=== PATIENT | male | born 1945 | race Caucasian/White ===

== ENCOUNTER → 2024-09-08 17:02 | Outpatient (CLI) | payer MEDICARE, OTHER, SELFPAY ==
[2024-09-08 17:35] LABS: Add Manual Diff / Slide Review NO; Basophils Absolute Auto 0 /uL (0-100); Basophils Percent Auto 0.7 % (0-2); Eosinophils Absolute Auto 100 /uL (0-450); Hematocrit 40.9 % (41-53); Lymphocytes Absolute Auto 1300 /uL (1100-4500); Lymphocytes Percent Auto 19.8 % (25-40); Mean Corpuscular HGB Conc 34.2 % (30-36); Mean Corpuscular Hemoglobin 32.3 PG (26-34); Mean Corpuscular Volume 94.5 fL (80-100); Monocytes Absolute Auto 700 /uL (0-900); Monocytes Percent Auto 10.6 % (3-14); Neutrophils Absolute Auto 4400 /uL (1500-7000); Neutrophils Percent Auto 66.9 % (50-75); Platelet Count 264 X10^3/uL (150-400); Red Blood Cell Count 4.33 X10^6/uL (4.5-5.9); Red Cell Distribution Width 12.9 % (11.6-14.8); White Blood Cell Count 6.6 X10^3/uL (4.5-11.0)
[2024-09-08 17:57] LABS: HEMOLYSIS < 15 (0-50); Iron 96 ug/dL (49-181)
[2024-09-08 18:09] LABS: Percent Iron Saturation 35 % (20-50); Total Iron Binding Capacity 278 ug/dL (261-462); Transferrin 222 mg/dL (206-381)
[2024-09-08 18:29] LABS: TSH w/ Reflex to FT4 1.94 uIU/mL (0.47-4.68)
[2024-09-08 18:34] LABS: Ferritin 127 ng/mL (18-464)
[2024-09-08 18:48] LABS: Vitamin B12 Reflex MMA if <400 585 pg/mL (239-931)
== END ==
LOC: LAB 17:04
PROVIDERS: PCP Family Medicine; Referring Provider Family Medicine; Visit Provider Family Medicine
DX: R53.83 Other fatigue (principal); R41.89 Other symptoms and signs involving cognitive functions and awareness
CPT/HCPCS: 36415; 82607; 82728; 83540; 83550; 84443; 85025

== ENCOUNTER 2024-10-21 17:00 | Outpatient (RCR) | payer MEDICARE, OTHER, SELFPAY ==
--- NOTE | 2024-09-20 15:15 | PT.OPPOC ---
Physical, Occupational & Speech Therapy At Current Diagnoses Dorsalgia, unspecified (09/20/24) Lateral epicondylitis, right elbow (09/20/24) Unspecified injury of right shoulder and upper arm, initial encounter (09/20/24) Unspecified injury of right shoulder and upper arm, subsequent encounter (09/20/24) Visit Care Team Role Provider Type Tonia Tate MD Attending Provider Physician Family Provider Primary Care Provider Referring Provider Specialty: Family Practice VENEER REDRIER Address: [address] [place] [address], [phone] Fax: Email: [email or web address] Plan Of Care PT-OP-B Current Condition Start: 09/20/24 16:05 Freq: Status: Active Protocol: Document 09/20/24 15:15 DCW (Rec: 09/21/24 13:00 DCW [id number]) Current Condition History of Current Condition Onset Date 4 month history Current Complaints right arm pain History of Current Condition Pt is a 78 year old male presenting with a four month history of right arm pain. 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 There' s a lot of tingling, but I'm used to it, I just avoid triggering activities. Notes that after moving here in April, he was unpacking boxes, lifted something out of a large box, and felt something pull in his right arm. Was fairly sore and limited the use of his arm, but then worsened after falling, reports he tripped, fell forward, and caught himself with his hands, which worsened the pain in his right arm. Overall feels that his activity has decreased, and his bottler is weaker in his right arm. Does note a history of lateral epicondylitis. PT-OP-T Assessment and Plan Start: 09/20/24 16:05 Freq: Status: Active Protocol: Document 09/20/24 15:15 DCW (Rec: 09/21/24 14:58 DCW [id number]) Physical Therapy Assessment Rehab Potential Rehabilitation Potential Good Evaluation Complexity Number of Personal Factors/Comorbidities 1-2 Number of Body Systems Impaired 3 Clinical Presentation at Evaluation Stable Impairments Impairments Pain,Soft Tissue Mobility, Strength Goals Three Impairment Tenderness to palpation of right common extensor tendon Websphere Consultant Goal (LTG) Pt to demonstrate improvement of tone and tenderness of right forearm to WNL in order to return to normal home activities. LTG Duration 11/20/24 Two Impairment Pt exhibits mild weakness with right bottler (80# R vs 90# L) Alf Goal (LTG) Pt to improve right bottler strength to >90# in order to improve ability to open jars LTG Duration 11/20/24 One Impairment Pt does not have an appropriate home exercise program Short Term Goal (STG) Pt to be independent and compliant with an appropriate HEP STG Duration 10/20/24 Assessment Summary Assessment Pt presents with signs and symptoms consistent with referring diagnosis. Pt exhibiting some mild increased pain along biceps, especially his long head tendon, as well as moderate tone and tenderness at right common extensor tendon. Pt does have a history of lateral epicondylitis, and appears to be rather symptomatic in that area. Overall, pt testing largely negative, good strength, no limitations to mobility. Other than tone and tenderness, fairly unremarkable. Pt appears to be making good improvement already, will likely benefit from focus on tone management, strengthening, stretching, and functional pain-free mobility. Physical Therapy Plan Frequency and Duration Frequency of Treatment 2x/Week Plan of Care Start Date 09/20/24 Plan of Care End Date 11/20/24 Therapeutic Interventions Therapeutic Interventions Home Exercise Program,Joint Mobilizations,Manual Therapy, Neuromuscular Re-education, Patient/Caregiver Education, Self-Care/Home Management,Soft Tissue Mobilization, Therapeutic Activities, Therapeutic Exercises Modalities Cold Pack/Ice Massage,Electric Stimulation,Hot Packs, Ultrasound Next Visit Focus/Plan Next Note Type Treatment Note Next Visit Plan STM, forearm strengthening, flexibility Plan of Care Dates Plan of Care Start Date 09/20/24 Plan of Care End Date 11/20/24 Electronically Signed by: Marcus Myers, PT 09/21/24 6100 If you are in agreement with this Plan of Care, please return a signed and dated copy. I have reviewed this Plan of Care and certify that the skilled therapy services above are required to meet the patient?s needs. Physician Signature Date Printed Name and Credentials Clinical Instructor Signature Printed Name and Credentials
--- NOTE | 2024-09-20 16:00 | PT.OPPOC ---
Physical, Occupational & Speech Therapy At [facility] Current Diagnoses Dorsalgia, unspecified (09/20/24) Lateral epicondylitis, right elbow (09/20/24) Unspecified injury of right shoulder and upper arm, initial encounter (09/20/24) Unspecified injury of right shoulder and upper arm, subsequent encounter (09/20/24) Visit Care Team Role Provider Type Tonia Tate MD Attending Provider Physician Family Provider Primary Care Provider Referring Provider Specialty: Family Practice WOODENWARE ASSEMBLER Address: [address] [place] [address], [phone] Fax: Email: [email or web address] Plan Of Care PT-OP-B Current Condition Start: 09/20/24 16:05 Freq: Status: Active Protocol: Document 09/20/24 15:15 DCW (Rec: 09/21/24 13:00 DCW [id number]) Current Condition History of Current Condition Onset Date 4 month history Current Complaints right arm pain History of Current Condition Pt is a 78 year old male presenting with a four month history of right arm pain. 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 There' s a lot of tingling, but I'm used to it, I just avoid triggering activities. Notes that after moving here in April, he was unpacking boxes, lifted something out of a large box, and felt something pull in his right arm. Was fairly sore and limited the use of his arm, but then worsened after falling, reports he tripped, fell forward, and caught himself with his hands, which worsened the pain in his right arm. 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 Does note a history of lateral epicondylitis. PT-OP-T Assessment and Plan Start: 09/20/24 16:05 Freq: Status: Active Protocol: Document 09/20/24 15:15 DCW (Rec: 09/21/24 14:58 DCW [id number]) Physical Therapy Assessment Rehab Potential Rehabilitation Potential Good Evaluation Complexity Number of Personal Factors/Comorbidities 1-2 Number of Body Systems Impaired 3 Clinical Presentation at Evaluation Stable Impairments Impairments Pain,Soft Tissue Mobility, Strength Goals Three Impairment Tenderness to palpation of right common extensor tendon Airplane First Officer Goal (LTG) Pt to demonstrate improvement of tone and tenderness of right forearm to WNL in order to return to normal home activities. LTG Duration 11/20/24 Two Impairment Pt exhibits mild weakness with right pulp machine operator (80# R vs 90# L) Jail Goal (LTG) Pt to improve right pulp machine operator strength to >90# in order to improve ability to open jars LTG Duration 11/20/24 One Impairment Pt does not have an appropriate home exercise program Short Term Goal (STG) Pt to be independent and compliant with an appropriate HEP STG Duration 10/20/24 Assessment Summary Assessment Pt presents with signs and symptoms consistent with referring diagnosis. Pt exhibiting some mild increased pain along biceps, especially his long head tendon, as well as moderate tone and tenderness at right common extensor tendon. Pt does have a history of lateral epicondylitis, and appears to be rather symptomatic in that area. Overall, pt testing largely negative, good strength, no limitations to mobility. Other than tone and tenderness, fairly unremarkable. Pt appears to be making good improvement already, will likely benefit from focus on tone management, strengthening, stretching, and functional pain-free mobility. Physical Therapy Plan Frequency and Duration Frequency of Treatment 2x/Week Plan of Care Start Date 09/20/24 Plan of Care End Date 11/20/24 Therapeutic Interventions Therapeutic Interventions Home Exercise Program,Joint Mobilizations,Manual Therapy, Neuromuscular Re-education, Patient/Caregiver Education, Self-Care/Home Management,Soft Tissue Mobilization, Therapeutic Activities, Therapeutic Exercises Modalities Cold Pack/Ice Massage,Electric Stimulation,Hot Packs, Ultrasound Next Visit Focus/Plan Next Note Type Treatment Note Next Visit Plan STM, forearm strengthening, flexibility Plan of Care Dates Plan of Care Start Date 09/20/24 Plan of Care End Date 11/20/24 Electronically Signed by: Marcus Myers, PT 09/21/24 1500 If you are in agreement with this Plan of Care, please return a signed and dated copy. I have reviewed this Plan of Care and certify that the skilled therapy services above are required to meet the patient?s needs. Physician Signature Date Printed Name and Credentials Clinical Instructor Signature Printed Name and Credentials
--- NOTE | 2024-09-20 16:00 | PT.OIE ---
Current Diagnoses Dorsalgia, unspecified (09/20/24) Lateral epicondylitis, right elbow (09/20/24) Unspecified injury of right shoulder and upper arm, initial encounter (09/20/24) Unspecified injury of right shoulder and upper arm, subsequent encounter (09/20/24) Past Medical History (Last Updated 09/08/24 @ 17:44 by Tonia Tate MD) Acute cognitive decline Atrial fib/flutter, transient Barretts esophagus Cervical disc disease Fatigue Forearm pain Hyperlipidemia Hypertension Renal mass, right Seborrheic keratosis Visit Care Team Role Provider Type Tonia Tate MD Attending Provider Physician Family Provider Primary Care Provider Referring Provider Specialty: Family Practice LIQUID COMPOUNDER Address: [address] [place] [address], [facility] Fax: Email: [email or web address] Physical Therapy Initial Evaluation PT-OP-A Visit Information Start: 09/20/24 16:05 Freq: Status: Active Protocol: Document 09/20/24 15:15 DCW (Rec: 09/20/24 16:13 DCW [id number]) Out-Patient Physical Therapy Visit Information Visit Information Visit Type Initial Evaluation Visit Start Time 15:15 Visit Stop Time 16:00 Visit Number 1 Number of SOCIAL SECURITY SPECIALIST Visits 0 Evaluation Information Evaluation Date 09/20/24 PT-OP-B Current Condition Start: 09/20/24 16:05 Freq: Status: Active Protocol: Document 09/20/24 15:15 DCW (Rec: 09/21/24 13:00 DCW [id number]) Current Condition History of Current Condition Onset Date 4 month history Current Complaints right arm pain History of Current Condition Pt is a 78 year old male presenting with a four month history of right arm pain. 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 There' s a lot of tingling, but I'm used to it, I just avoid triggering activities. Notes that after moving here in April, he was unpacking boxes, lifted something out of a large box, and felt something pull in his right arm. Was fairly sore and limited the use of his arm, but then worsened after falling, reports he tripped, fell forward, and caught himself with his hands, which worsened the pain in his right arm. 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 Does note a history of lateral epicondylitis. PT-OP-C Subjective Start: 09/20/24 16:05 Freq: Status: Active Protocol: Document 09/20/24 15:15 DCW (Rec: 09/20/24 16:13 DCW [id number]) OP-PT Subjective Patient Comments Patient Comments It felt a lot like when I tore my pec, but there wasn't any bruising this time. When I tore my pec, my entire arm was bruised. Patient Reported Progress Improving Patient Questionnaires Quick Dash- Upper Extremity Quick Dash UE Score 34.09% Quick Dash UE Impairment 20 to 39% Impaired (Score 20- 39) PT-OP-F Manual Assessment Start: 09/20/24 16:05 Freq: Status: Active Protocol: Document 09/20/24 15:15 DCW (Rec: 09/21/24 12:51 DCW [id number]) Manual Assessments Soft Tissue Assessment Soft Tissue Mobility Assessment Tenderness to palpation 3/4: Wincing and withdraw along right common extensor tendon, 1/4: Complaint of pain along right long head tendon Joint Mobility Assessment Joint Mobility Assessment Functional joint mobility WNL PT-OP-K Range of Motion Start: 09/20/24 16:05 Freq: Status: Active Protocol: Document 09/20/24 15:15 DCW (Rec: 09/21/24 12:51 DCW [id number]) Shoulder Goniometric Range of Motion Shoulder Left Active Shoulder ROM WFL Yes Testing Position Sitting Flexion 180 Abduction 180 External Rotation at 0 degrees Abduction 65 Right Active Shoulder ROM WFL Yes Testing Position Sitting Flexion 180 Abduction 180 External Rotation at 0 degrees Abduction 65 PT-OP-L Special Tests Start: 09/20/24 16:05 Freq: Status: Active Protocol: Document 09/20/24 15:15 DCW (Rec: 09/21/24 12:51 DCW [id number]) Special Tests Shoulder Special Tests Yergason's Biceps Test Results Negative Speed's Biceps Test Results Negative Passive ER Rotator Cuff Test Results Negative Lift-Off Rotator Cuff Test Results Negative Cooper Primo Impingement Test Results Negative Grind Labrum Test Results Negative Empty Can Test Results Negative Drop Arm Rotator Cuff Test Results Negative Clunk Test Test Results Negative Belly Press Test Results Negative Apprehension Test Test Results Negative Wrist/Hand Special Tests Lateral Epicondylitis Flexed Test Results Negative Lateral Epicondylitis Extended Test Results Negative PT-OP-M Strength Start: 09/20/24 16:05 Freq: Status: Active Protocol: Document 09/20/24 15:15 DCW (Rec: 09/21/24 12:51 DCW [id number]) Shoulder Strength Shoulder Manual Muscle Testing Right Flexion 5 Normal Abduction (C5) 5 Normal External Rotation 5 Normal Internal Rotation 5 Normal Left Flexion 5 Normal Abduction (C5) 5 Normal External Rotation 5 Normal Internal Rotation 5 Normal Elbow/Forearm Strength Elbow and Forearm Manual Muscle Testing Right Flexion (C6) 5 Normal Extension (C7) 5 Normal Pronation 5 Normal Supination 5 Normal Left Flexion (C6) 5 Normal Extension (C7) 5 Normal Pronation 5 Normal Supination 5 Normal Wrist Strength Wrist Manual Muscle Testing Right Flexion (C7) 5 Normal Extension (C6) 5 Normal Ulnar Deviation 5 Normal Radial Deviation 5 Normal Left Flexion (C7) 5 Normal Extension (C6) 5 Normal Ulnar Deviation 5 Normal Radial Deviation 5 Normal Hand Foundation Director/Pinch Strength Hand Dominance Hand Dominance Right Hand Strength Right Foundation Director (lbs) 80 Comments Three-trial average (80, 80, 80) Left Foundation Director (lbs) 90 Comments Three-trial average (100, 80, 90) PT-OP-Q Treatments Start: 09/20/24 16:05 Freq: Status: Active Protocol: Document 09/20/24 15:15 DCW (Rec: 09/20/24 16:13 DCW [id number]) Therapeutic Exercises Sitting Exercises Foundation Director Sitting Exercise Name Finger flexion/extension Side right Resistance Greeny Putty Wrist Flexion Sitting Exercise Name 4-way wrist flexion Side right Resistance Lv 3 Pronation Sitting Exercise Name Hammer Pronation/Supination Side right PT-OP-T Assessment and Plan Start: 09/20/24 16:05 Freq: Status: Active Protocol: Document 09/20/24 15:15 DCW (Rec: 09/21/24 14:58 DCW [id number]) Physical Therapy Assessment Rehab Potential Rehabilitation Potential Good Evaluation Complexity Number of Personal Factors/Comorbidities 1-2 Number of Body Systems Impaired 3 Clinical Presentation at Evaluation Stable Impairments Impairments Pain,Soft Tissue Mobility, Strength Goals Three Impairment Tenderness to palpation of right common extensor tendon Fci Goal (LTG) Pt to demonstrate improvement of tone and tenderness of right forearm to WNL in order to return to normal home activities. LTG Duration 11/20/24 Two Impairment Pt exhibits mild weakness with right biomedical repair technician (80# R vs 90# L) Cathode Builder Goal (LTG) Pt to improve right biomedical repair technician strength to >90# in order to improve ability to open jars LTG Duration 11/20/24 One Impairment Pt does not have an appropriate home exercise program Short Term Goal (STG) Pt to be independent and compliant with an appropriate HEP STG Duration 10/20/24 Assessment Summary Assessment Pt presents with signs and symptoms consistent with referring diagnosis. Pt exhibiting some mild increased pain along biceps, especially his long head tendon, as well as moderate tone and tenderness at right common extensor tendon. Pt does have a history of lateral epicondylitis, and appears to be rather symptomatic in that area. Overall, pt testing largely negative, good strength, no limitations to mobility. Other than tone and tenderness, fairly unremarkable. Pt appears to be making good improvement already, will likely benefit from focus on tone management, strengthening, stretching, and functional pain-free mobility. Physical Therapy Plan Frequency and Duration Frequency of Treatment 2x/Week Plan of Care Start Date 09/20/24 Plan of Care End Date 11/20/24 Therapeutic Interventions Therapeutic Interventions Home Exercise Program,Joint Mobilizations,Manual Therapy, Neuromuscular Re-education, Patient/Caregiver Education, Self-Care/Home Management,Soft Tissue Mobilization, Therapeutic Activities, Therapeutic Exercises Modalities Cold Pack/Ice Massage,Electric Stimulation,Hot Packs, Ultrasound Next Visit Focus/Plan Next Note Type Treatment Note Next Visit Plan STM, forearm strengthening, flexibility
--- NOTE | 2024-09-20 16:00 | PT.OIE ---
Current Diagnoses Dorsalgia, unspecified (09/20/24) Lateral epicondylitis, right elbow (09/20/24) Unspecified injury of right shoulder and upper arm, initial encounter (09/20/24) Unspecified injury of right shoulder and upper arm, subsequent encounter (09/20/24) Past Medical History (Last Updated 09/08/24 @ 17:44 by Tonia Tate MD) Acute cognitive decline Atrial fib/flutter, transient Barretts esophagus Cervical disc disease Fatigue Forearm pain Hyperlipidemia Hypertension Renal mass, right Seborrheic keratosis Visit Care Team Role Provider Type Tonia Tate MD Attending Provider Physician Family Provider Primary Care Provider Referring Provider Specialty: Family Practice [employer] Address: [address] [place] [address], [facility] Fax: Email: [email or web address] Physical Therapy Initial Evaluation PT-OP-A Visit Information Start: 09/20/24 16:05 Freq: Status: Active Protocol: Document 09/20/24 15:15 DCW (Rec: 09/20/24 16:13 DCW [id number]) Out-Patient Physical Therapy Visit Information Visit Information Visit Type Initial Evaluation Visit Start Time 15:15 Visit Stop Time 16:00 Visit Number 1 Number of PREPARATION ROOM WORKER Visits 0 Evaluation Information Evaluation Date 09/20/24 PT-OP-B Current Condition Start: 09/20/24 16:05 Freq: Status: Active Protocol: Document 09/20/24 15:15 DCW (Rec: 09/21/24 13:00 DCW [id number]) Current Condition History of Current Condition Onset Date 4 month history Current Complaints right arm pain History of Current Condition Pt is a 78 year old male presenting with a four month history of right arm pain. 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 There' s a lot of tingling, but I'm used to it, I just avoid triggering activities. Notes that after moving here in April, he was unpacking boxes, lifted something out of a large box, and felt something pull in his right arm. Was fairly sore and limited the use of his arm, but then worsened after falling, reports he tripped, fell forward, and caught himself with his hands, which worsened the pain in his right arm. Overall feels that his activity has decreased, and his sleeve maker is weaker in his right arm. Does note a history of lateral epicondylitis. PT-OP-C Subjective Start: 09/20/24 16:05 Freq: Status: Active Protocol: Document 09/20/24 15:15 DCW (Rec: 09/20/24 16:13 DCW [id number]) OP-PT Subjective Patient Comments Patient Comments It felt a lot like when I tore my pec, but there wasn't any bruising this time. When I tore my pec, my entire arm was bruised. Patient Reported Progress Improving Patient Questionnaires Quick Dash- Upper Extremity Quick Dash UE Score 34.09% Quick Dash UE Impairment 20 to 39% Impaired (Score 20- 39) PT-OP-F Manual Assessment Start: 09/20/24 16:05 Freq: Status: Active Protocol: Document 09/20/24 15:15 DCW (Rec: 09/21/24 12:51 DCW [id number]) Manual Assessments Soft Tissue Assessment Soft Tissue Mobility Assessment Tenderness to palpation 3/4: Wincing and withdraw along right common extensor tendon, 1/4: Complaint of pain along right long head tendon Joint Mobility Assessment Joint Mobility Assessment Functional joint mobility WNL PT-OP-K Range of Motion Start: 09/20/24 16:05 Freq: Status: Active Protocol: Document 09/20/24 15:15 DCW (Rec: 09/21/24 12:51 DCW [id number]) Shoulder Goniometric Range of Motion Shoulder Left Active Shoulder ROM WFL Yes Testing Position Sitting Flexion 180 Abduction 180 External Rotation at 0 degrees Abduction 65 Right Active Shoulder ROM WFL Yes Testing Position Sitting Flexion 180 Abduction 180 External Rotation at 0 degrees Abduction 65 PT-OP-L Special Tests Start: 09/20/24 16:05 Freq: Status: Active Protocol: Document 09/20/24 15:15 DCW (Rec: 09/21/24 12:51 DCW [id number]) Special Tests Shoulder Special Tests Yergason's Biceps Test Results Negative Speed's Biceps Test Results Negative Passive ER Rotator Cuff Test Results Negative Lift-Off Rotator Cuff Test Results Negative Cooper Primo Impingement Test Results Negative Grind Labrum Test Results Negative Empty Can Test Results Negative Drop Arm Rotator Cuff Test Results Negative Clunk Test Test Results Negative Belly Press Test Results Negative Apprehension Test Test Results Negative Wrist/Hand Special Tests Lateral Epicondylitis Flexed Test Results Negative Lateral Epicondylitis Extended Test Results Negative PT-OP-M Strength Start: 09/20/24 16:05 Freq: Status: Active Protocol: Document 09/20/24 15:15 DCW (Rec: 09/21/24 12:51 DCW [id number]) Shoulder Strength Shoulder Manual Muscle Testing Right Flexion 5 Normal Abduction (C5) 5 Normal External Rotation 5 Normal Internal Rotation 5 Normal Left Flexion 5 Normal Abduction (C5) 5 Normal External Rotation 5 Normal Internal Rotation 5 Normal Elbow/Forearm Strength Elbow and Forearm Manual Muscle Testing Right Flexion (C6) 5 Normal Extension (C7) 5 Normal Pronation 5 Normal Supination 5 Normal Left Flexion (C6) 5 Normal Extension (C7) 5 Normal Pronation 5 Normal Supination 5 Normal Wrist Strength Wrist Manual Muscle Testing Right Flexion (C7) 5 Normal Extension (C6) 5 Normal Ulnar Deviation 5 Normal Radial Deviation 5 Normal Left Flexion (C7) 5 Normal Extension (C6) 5 Normal Ulnar Deviation 5 Normal Radial Deviation 5 Normal Hand Casing Trimmer/Pinch Strength Hand Dominance Hand Dominance Right Hand Strength Right Casing Trimmer (lbs) 80 Comments Three-trial average (80, 80, 80) Left Casing Trimmer (lbs) 90 Comments Three-trial average (100, 80, 90) PT-OP-Q Treatments Start: 09/20/24 16:05 Freq: Status: Active Protocol: Document 09/20/24 15:15 DCW (Rec: 09/20/24 16:13 DCW [id number]) Therapeutic Exercises Sitting Exercises Casing Trimmer Sitting Exercise Name Finger flexion/extension Side right Resistance Greeny Putty Wrist Flexion Sitting Exercise Name 4-way wrist flexion Side right Resistance Lv 3 Pronation Sitting Exercise Name Hammer Pronation/Supination Side right PT-OP-T Assessment and Plan Start: 09/20/24 16:05 Freq: Status: Active Protocol: Document 09/20/24 15:15 DCW (Rec: 09/21/24 14:58 DCW [id number]) Physical Therapy Assessment Rehab Potential Rehabilitation Potential Good Evaluation Complexity Number of Personal Factors/Comorbidities 1-2 Number of Body Systems Impaired 3 Clinical Presentation at Evaluation Stable Impairments Impairments Pain,Soft Tissue Mobility, Strength Goals Three Impairment Tenderness to palpation of right common extensor tendon Mcfp Goal (LTG) Pt to demonstrate improvement of tone and tenderness of right forearm to WNL in order to return to normal home activities. LTG Duration 11/20/24 Two Impairment Pt exhibits mild weakness with right sleeve maker (80# R vs 90# L) Preschool Assistant Goal (LTG) Pt to improve right sleeve maker strength to >90# in order to improve ability to open jars LTG Duration 11/20/24 One Impairment Pt does not have an appropriate home exercise program Short Term Goal (STG) Pt to be independent and compliant with an appropriate HEP STG Duration 10/20/24 Assessment Summary Assessment Pt presents with signs and symptoms consistent with referring diagnosis. Pt exhibiting some mild increased pain along biceps, especially his long head tendon, as well as moderate tone and tenderness at right common extensor tendon. Pt does have a history of lateral epicondylitis, and appears to be rather symptomatic in that area. Overall, pt testing largely negative, good strength, no limitations to mobility. Other than tone and tenderness, fairly unremarkable. Pt appears to be making good improvement already, will likely benefit from focus on tone management, strengthening, stretching, and functional pain-free mobility. Physical Therapy Plan Frequency and Duration Frequency of Treatment 2x/Week Plan of Care Start Date 09/20/24 Plan of Care End Date 11/20/24 Therapeutic Interventions Therapeutic Interventions Home Exercise Program,Joint Mobilizations,Manual Therapy, Neuromuscular Re-education, Patient/Caregiver Education, Self-Care/Home Management,Soft Tissue Mobilization, Therapeutic Activities, Therapeutic Exercises Modalities Cold Pack/Ice Massage,Electric Stimulation,Hot Packs, Ultrasound Next Visit Focus/Plan Next Note Type Treatment Note Next Visit Plan STM, forearm strengthening, flexibility
--- NOTE | 2024-09-23 15:59 | PT.OTN ---
Current Diagnoses Dorsalgia, unspecified (09/23/24) Lateral epicondylitis, right elbow (09/23/24) Unspecified injury of right shoulder and upper arm, initial encounter (09/23/24) Unspecified injury of right shoulder and upper arm, subsequent encounter (09/23/24) Physical Therapy Treatment Note PT-OP-A Visit Information Start: 09/20/24 16:05 Freq: Status: Active Protocol: Document 09/23/24 15:15 DCW (Rec: 09/23/24 15:59 DCW [id number]) Out-Patient Physical Therapy Visit Information Visit Information Visit Type Treatment Note Visit Start Time 15:15 Visit Stop Time 16:00 Visit Number 2 Number of COIL CONNECTOR Visits 0 Evaluation Information Evaluation Date 09/20/24 PT-OP-B Current Condition Start: 09/20/24 16:05 Freq: Status: Active Protocol: Document 09/20/24 15:15 DCW (Rec: 09/21/24 13:00 DCW [id number]) Current Condition History of Current Condition Onset Date 4 month history Current Complaints right arm pain History of Current Condition Pt is a 78 year old male presenting with a four month history of right arm pain. 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 There' s a lot of tingling, but I'm used to it, I just avoid triggering activities. Notes that after moving here in April, he was unpacking boxes, lifted something out of a large box, and felt something pull in his right arm. Was fairly sore and limited the use of his arm, but then worsened after falling, reports he tripped, fell forward, and caught himself with his hands, which worsened the pain in his right arm. 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 Does note a history of lateral epicondylitis. PT-OP-C Subjective Start: 09/20/24 16:05 Freq: Status: Active Protocol: Document 09/23/24 15:15 DCW (Rec: 09/23/24 15:59 DCW [id number]) OP-PT Subjective Patient Comments Patient Comments I think it might be a little better, but it also seems a little soon for that, so it might be my imagination. PT-OP-F Manual Assessment Start: 09/20/24 16:05 Freq: Status: Active Protocol: Document 09/20/24 15:15 DCW (Rec: 09/21/24 12:51 DCW [id number]) Manual Assessments Soft Tissue Assessment Soft Tissue Mobility Assessment Tenderness to palpation 3/4: Wincing and withdraw along right common extensor tendon, 1/4: Complaint of pain along right long head tendon Joint Mobility Assessment Joint Mobility Assessment Functional joint mobility WNL PT-OP-K Range of Motion Start: 09/20/24 16:05 Freq: Status: Active Protocol: Document 09/20/24 15:15 DCW (Rec: 09/21/24 12:51 DCW [id number]) Shoulder Goniometric Range of Motion Shoulder Left Active Shoulder ROM WFL Yes Testing Position Sitting Flexion 180 Abduction 180 External Rotation at 0 degrees Abduction 65 Right Active Shoulder ROM WFL Yes Testing Position Sitting Flexion 180 Abduction 180 External Rotation at 0 degrees Abduction 65 PT-OP-L Special Tests Start: 09/20/24 16:05 Freq: Status: Active Protocol: Document 09/20/24 15:15 DCW (Rec: 09/21/24 12:51 DCW [id number]) Special Tests Shoulder Special Tests Yergason's Biceps Test Results Negative Speed's Biceps Test Results Negative Passive ER Rotator Cuff Test Results Negative Lift-Off Rotator Cuff Test Results Negative Cooper Primo Impingement Test Results Negative Grind Labrum Test Results Negative Empty Can Test Results Negative Drop Arm Rotator Cuff Test Results Negative Clunk Test Test Results Negative Belly Press Test Results Negative Apprehension Test Test Results Negative Wrist/Hand Special Tests Lateral Epicondylitis Flexed Test Results Negative Lateral Epicondylitis Extended Test Results Negative PT-OP-M Strength Start: 09/20/24 16:05 Freq: Status: Active Protocol: Document 09/20/24 15:15 DCW (Rec: 09/21/24 12:51 DCW [id number]) Shoulder Strength Shoulder Manual Muscle Testing Right Flexion 5 Normal Abduction (C5) 5 Normal External Rotation 5 Normal Internal Rotation 5 Normal Left Flexion 5 Normal Abduction (C5) 5 Normal External Rotation 5 Normal Internal Rotation 5 Normal Elbow/Forearm Strength Elbow and Forearm Manual Muscle Testing Right Flexion (C6) 5 Normal Extension (C7) 5 Normal Pronation 5 Normal Supination 5 Normal Left Flexion (C6) 5 Normal Extension (C7) 5 Normal Pronation 5 Normal Supination 5 Normal Wrist Strength Wrist Manual Muscle Testing Right Flexion (C7) 5 Normal Extension (C6) 5 Normal Ulnar Deviation 5 Normal Radial Deviation 5 Normal Left Flexion (C7) 5 Normal Extension (C6) 5 Normal Ulnar Deviation 5 Normal Radial Deviation 5 Normal Hand Picking Supervisor/Pinch Strength Hand Dominance Hand Dominance Right Hand Strength Right Picking Supervisor (lbs) 80 Comments Three-trial average (80, 80, 80) Left Picking Supervisor (lbs) 90 Comments Three-trial average (100, 80, 90) PT-OP-Q Treatments Start: 09/20/24 16:05 Freq: Status: Active Protocol: Document 09/23/24 15:15 DCW (Rec: 09/23/24 15:59 DCW [id number]) Therapeutic Exercises Sitting Exercises Ball Catch Sitting Exercise Name Palm-down self-throw ball catch Side right Resistance Yellow 2.2# -> Red 3.3# ball Finger Extension Sitting Exercise Name Finger extension Side right Resistance Morrow finger exhibit cleaner Flexbar Sitting Exercise Name Flexbar - Pro/Sup, Twist, Circles Side bilateral Resistance Red Wrist Stretch Sitting Exercise Name Flexion - stretch common extensors Side right Reps/Minutes 30 hold Manual Therapy Treatment Consent Patient gave verbal consent for manual Yes treatment Soft Tissue Mobilization Forearm Body Location R common extensor tendon Mobilization Type Cross-Friction Intensity/Depth Moderate Body Position Sitting Taping 1 Body Location R Lateral epicondyle Type of Tape Kinesio Tape Comments x over lateral epicondyle PT-OP-T Assessment and Plan Start: 09/20/24 16:05 Freq: Status: Active Protocol: Document 09/23/24 15:15 DCW (Rec: 09/23/24 15:59 DCW [id number]) Physical Therapy Assessment Impairments Impairments Pain,Soft Tissue Mobility, Strength Goals Three Impairment Tenderness to palpation of right common extensor tendon Custodial Goal (LTG) Pt to demonstrate improvement of tone and tenderness of right forearm to WNL in order to return to normal home activities. LTG Duration 11/20/24 Two Impairment Pt exhibits mild weakness with right women's basketball coach (80# R vs 90# L) Custodial Goal (LTG) Pt to improve right women's basketball coach strength to >90# in order to improve ability to open jars LTG Duration 11/20/24 One Impairment Pt does not have an appropriate home exercise program Short Term Goal (STG) Pt to be independent and compliant with an appropriate HEP STG Duration 10/20/24 Assessment Summary Assessment Pt tolerated treatment very well today, felt significantly less pain by end of session. Trial of K-tape across lateral epicondyle, pt able to fully participate in TherEx with no complaints, although did note some fatigue in forearm. Continue to work on decreased tenderness, soft tissue mobility, and strengthening. Physical Therapy Plan Frequency and Duration Frequency of Treatment 2x/Week Plan of Care Start Date 09/20/24 Plan of Care End Date 11/20/24 Therapeutic Interventions Therapeutic Interventions Home Exercise Program,Joint Mobilizations,Manual Therapy, Neuromuscular Re-education, Patient/Caregiver Education, Self-Care/Home Management,Soft Tissue Mobilization, Therapeutic Activities, Therapeutic Exercises Modalities Cold Pack/Ice Massage,Electric Stimulation,Hot Packs, Ultrasound Next Visit Focus/Plan Next Note Type Treatment Note Next Visit Plan STM, forearm strengthening, flexibility
--- NOTE | 2024-09-29 14:35 | PT.OTN ---
Current Diagnoses Dorsalgia, unspecified (09/29/24) Lateral epicondylitis, right elbow (09/29/24) Unspecified injury of right shoulder and upper arm, initial encounter (09/29/24) Unspecified injury of right shoulder and upper arm, subsequent encounter (09/29/24) Physical Therapy Treatment Note PT-OP-A Visit Information Start: 09/20/24 16:05 Freq: Status: Active Protocol: Document 09/29/24 13:52 SP (Rec: 09/29/24 14:34 SP Laptop) Out-Patient Physical Therapy Visit Information Visit Information Visit Type Treatment Note Visit Note MARICHUY Jorgensen provided manual and instruction of ther ex to pt with his permission while under direct instruction of TYLER Mckinney. Visit Start Time 13:52 Visit Stop Time 14:35 Visit Number 3 Number of GIMP BUTTONHOLE MACHINE OPERATOR Visits 1 Evaluation Information Evaluation Date 09/20/24 PT-OP-B Current Condition Start: 09/20/24 16:05 Freq: Status: Active Protocol: Document 09/20/24 15:15 DCW (Rec: 09/21/24 13:00 DCW [id number]) Current Condition History of Current Condition Onset Date 4 month history Current Complaints right arm pain History of Current Condition Pt is a 78 year old male presenting with a four month history of right arm pain. 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 There' s a lot of tingling, but I'm used to it, I just avoid triggering activities. Notes that after moving here in April, he was unpacking boxes, lifted something out of a large box, and felt something pull in his right arm. Was fairly sore and limited the use of his arm, but then worsened after falling, reports he tripped, fell forward, and caught himself with his hands, which worsened the pain in his right arm. 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 Does note a history of lateral epicondylitis. PT-OP-C Subjective Start: 09/20/24 16:05 Freq: Status: Active Protocol: Document 09/29/24 13:52 SP (Rec: 09/29/24 14:34 SP Laptop) OP-PT Subjective Patient Comments Patient Comments Pt reports sore today due to on hands/knees staining his trellis. [place] good after last tx, pleased with gains with ROM and strength. Does have tingling down R>L into hand. He reports has some bladder urgency at times and limits drinking to support trips to bathroom. Found Ktaping was helpful, just removed before tx. PT-OP-F Manual Assessment Start: 09/20/24 16:05 Freq: Status: Active Protocol: Document 09/20/24 15:15 DCW (Rec: 09/21/24 12:51 DCW [id number]) Manual Assessments Soft Tissue Assessment Soft Tissue Mobility Assessment Tenderness to palpation 3/4: Wincing and withdraw along right common extensor tendon, 1/4: Complaint of pain along right long head tendon Joint Mobility Assessment Joint Mobility Assessment Functional joint mobility WNL PT-OP-K Range of Motion Start: 09/20/24 16:05 Freq: Status: Active Protocol: Document 09/20/24 15:15 DCW (Rec: 09/21/24 12:51 DCW [id number]) Shoulder Goniometric Range of Motion Shoulder Left Active Shoulder ROM WFL Yes Testing Position Sitting Flexion 180 Abduction 180 External Rotation at 0 degrees Abduction 65 Right Active Shoulder ROM WFL Yes Testing Position Sitting Flexion 180 Abduction 180 External Rotation at 0 degrees Abduction 65 PT-OP-L Special Tests Start: 09/20/24 16:05 Freq: Status: Active Protocol: Document 09/20/24 15:15 DCW (Rec: 09/21/24 12:51 DCW [id number]) Special Tests Shoulder Special Tests Yergason's Biceps Test Results Negative Speed's Biceps Test Results Negative Passive ER Rotator Cuff Test Results Negative Lift-Off Rotator Cuff Test Results Negative Cooper Primo Impingement Test Results Negative Grind Labrum Test Results Negative Empty Can Test Results Negative Drop Arm Rotator Cuff Test Results Negative Clunk Test Test Results Negative Belly Press Test Results Negative Apprehension Test Test Results Negative Wrist/Hand Special Tests Lateral Epicondylitis Flexed Test Results Negative Lateral Epicondylitis Extended Test Results Negative PT-OP-M Strength Start: 09/20/24 16:05 Freq: Status: Active Protocol: Document 09/20/24 15:15 DCW (Rec: 09/21/24 12:51 DCW [id number]) Shoulder Strength Shoulder Manual Muscle Testing Right Flexion 5 Normal Abduction (C5) 5 Normal External Rotation 5 Normal Internal Rotation 5 Normal Left Flexion 5 Normal Abduction (C5) 5 Normal External Rotation 5 Normal Internal Rotation 5 Normal Elbow/Forearm Strength Elbow and Forearm Manual Muscle Testing Right Flexion (C6) 5 Normal Extension (C7) 5 Normal Pronation 5 Normal Supination 5 Normal Left Flexion (C6) 5 Normal Extension (C7) 5 Normal Pronation 5 Normal Supination 5 Normal Wrist Strength Wrist Manual Muscle Testing Right Flexion (C7) 5 Normal Extension (C6) 5 Normal Ulnar Deviation 5 Normal Radial Deviation 5 Normal Left Flexion (C7) 5 Normal Extension (C6) 5 Normal Ulnar Deviation 5 Normal Radial Deviation 5 Normal Hand Manager Spring/Pinch Strength Hand Dominance Hand Dominance Right Hand Strength Right Manager Spring (lbs) 80 Comments Three-trial average (80, 80, 80) Left Manager Spring (lbs) 90 Comments Three-trial average (100, 80, 90) PT-OP-Q Treatments Start: 09/20/24 16:05 Freq: Status: Active Protocol: Document 09/29/24 13:52 SP (Rec: 09/29/24 14:34 SP Laptop) Therapeutic Exercises Sitting Exercises Wrist Flexion Sitting Exercise Name 4-way wrist extension, flexion , ulnar and radial deviation. Side right Resistance Lv 3 anchored under foot Reps/Minutes 2x10 Comments forearm maintained on thigh, cues for tb positioning. Pronation Sitting Exercise Name Hammer> TB #3 Pronation/ Supination Side right Reps/Minutes 2x10 Comments cuese keep forearm on thigh, vc's for tb positioning Manual Therapy Treatment Consent Patient gave verbal consent for manual Yes treatment Soft Tissue Mobilization R shld Body Location R pec, bicep Mobilization Type Rolling,Sustained Pressure, Other Body Position supine pillow supported Comments gentle STMs and MWM humeral IR /ER, elbow flex/ext Neck Body Location SOR, B UT, SCM, LS Mobilization Type Rolling,Sustained Pressure, Other Intensity/Depth Moderate Body Position Hooklying Comments slightly tender Forearm Body Location R common extensor tendon Mobilization Type Cross-Friction,Sustained Pressure,Other Intensity/Depth Moderate Body Position Hooklying Comments Gentle STM, MWM forearm pronation, supination, extension and flexion. Joint Mobilizations R elbow Joint inferior ulnar glide Grade II Comments with strap- good feedback response Self-Care/Home Management Treatment Education Other Education GIMP BUTTONHOLE MACHINE OPERATOR educate pt in Urgency technique and [place]egal long holds and quick contractions to support bladder extending frequency use of bathroom, verbalized understanding. [place] to give HO, will provide next tx. Continued education for use pillows for support supine under RUE for support decrease tingling symtoms into hand. PT-OP-T Assessment and Plan Start: 09/20/24 16:05 Freq: Status: Active Protocol: Document 09/29/24 13:52 SP (Rec: 09/29/24 14:34 SP Laptop) Physical Therapy Assessment Goals Three Impairment Tenderness to palpation of right common extensor tendon Loss Control Technician Goal (LTG) Pt to demonstrate improvement of tone and tenderness of right forearm to WNL in order to return to normal home activities. LTG Duration 11/20/24 Two Impairment Pt exhibits mild weakness with right wind turbine engineer (80# R vs 90# L) Loss Control Technician Goal (LTG) Pt to improve right wind turbine engineer strength to >90# in order to improve ability to open jars LTG Duration 11/20/24 One Impairment Pt does not have an appropriate home exercise program Short Term Goal (STG) Pt to be independent and compliant with an appropriate HEP STG Duration 10/20/24 Assessment Summary Assessment Pt responded well to manual therapy, more in neck and forearm/elbow. Educated pt in use of pillows for joint protection and decreased neural tension while sleeping. Provided cues for proper set up and form while performing HEP. Pt provided feedback that it allowed for more effort with TB versus hammer. Physical Therapy Plan Frequency and Duration Frequency of Treatment 2x/Week Plan of Care Start Date 09/20/24 Plan of Care End Date 11/20/24 Therapeutic Interventions Therapeutic Interventions Home Exercise Program,Joint Mobilizations,Manual Therapy, Neuromuscular Re-education, Patient/Caregiver Education, Self-Care/Home Management,Soft Tissue Mobilization, Therapeutic Activities, Therapeutic Exercises Modalities Cold Pack/Ice Massage,Electric Stimulation,Hot Packs, Ultrasound Next Visit Focus/Plan Next Note Type Treatment Note Next Visit Plan future wall posture, recheck set up for HEP for proper form . POC: STM, forearm strengthening, flexibility
--- NOTE | 2024-10-01 11:25 | PT.OTN ---
Current Diagnoses Dorsalgia, unspecified (10/01/24) Lateral epicondylitis, right elbow (10/01/24) Unspecified injury of right shoulder and upper arm, initial encounter (10/01/24) Unspecified injury of right shoulder and upper arm, subsequent encounter (10/01/24) Physical Therapy Treatment Note PT-OP-A Visit Information Start: 09/20/24 16:05 Freq: Status: Active Protocol: Document 10/01/24 10:45 SP (Rec: 10/01/24 12:55 SP Laptop) Out-Patient Physical Therapy Visit Information Visit Information Visit Type Treatment Note Visit Note SPTA Joslyn observed tx with BREAKDOWN PERSON Faye providing tx, with pt permission. Visit Start Time 10:45 Visit Stop Time 11:25 Visit Number 4 Number of BREAKDOWN PERSON Visits 2 Evaluation Information Evaluation Date 09/20/24 PT-OP-B Current Condition Start: 09/20/24 16:05 Freq: Status: Active Protocol: Document 09/20/24 15:15 DCW (Rec: 09/21/24 13:00 DCW [id number]) Current Condition History of Current Condition Onset Date 4 month history Current Complaints right arm pain History of Current Condition Pt is a 78 year old male presenting with a four month history of right arm pain. 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 There' s a lot of tingling, but I'm used to it, I just avoid triggering activities. Notes that after moving here in April, he was unpacking boxes, lifted something out of a large box, and felt something pull in his right arm. Was fairly sore and limited the use of his arm, but then worsened after falling, reports he tripped, fell forward, and caught himself with his hands, which worsened the pain in his right arm. 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 Does note a history of lateral epicondylitis. PT-OP-C Subjective Start: 09/20/24 16:05 Freq: Status: Active Protocol: Document 10/01/24 10:45 SP (Rec: 10/01/24 12:55 SP Laptop) OP-PT Subjective Patient Comments Patient Comments Pt reported doing well with HEP, feels more effort strengthening with TB vs hammer now. 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 He still has twinges in wrist and CET RUE with opening jars like opening cat food and lifting heavy casserole plate into drying rack and up to microwave. Feels ok to use plyers, screwdriver ok. Pt requested retape R elbow today for suppport helped. Doesn't always wear elbow strap. PT-OP-F Manual Assessment Start: 09/20/24 16:05 Freq: Status: Active Protocol: Document 09/20/24 15:15 DCW (Rec: 09/21/24 12:51 DCW [id number]) Manual Assessments Soft Tissue Assessment Soft Tissue Mobility Assessment Tenderness to palpation 3/4: Wincing and withdraw along right common extensor tendon, 1/4: Complaint of pain along right long head tendon Joint Mobility Assessment Joint Mobility Assessment Functional joint mobility WNL PT-OP-K Range of Motion Start: 09/20/24 16:05 Freq: Status: Active Protocol: Document 09/20/24 15:15 DCW (Rec: 09/21/24 12:51 DCW [id number]) Shoulder Goniometric Range of Motion Shoulder Left Active Shoulder ROM WFL Yes Testing Position Sitting Flexion 180 Abduction 180 External Rotation at 0 degrees Abduction 65 Right Active Shoulder ROM WFL Yes Testing Position Sitting Flexion 180 Abduction 180 External Rotation at 0 degrees Abduction 65 PT-OP-L Special Tests Start: 09/20/24 16:05 Freq: Status: Active Protocol: Document 09/20/24 15:15 DCW (Rec: 09/21/24 12:51 DC [id number]) Special Tests Shoulder Special Tests Yergason's Biceps Test Results Negative Speed's Biceps Test Results Negative Passive ER Rotator Cuff Test Results Negative Lift-Off Rotator Cuff Test Results Negative Cooper Primo Impingement Test Results Negative Grind Labrum Test Results Negative Empty Can Test Results Negative Drop Arm Rotator Cuff Test Results Negative Clunk Test Test Results Negative Belly Press Test Results Negative Apprehension Test Test Results Negative Wrist/Hand Special Tests Lateral Epicondylitis Flexed Test Results Negative Lateral Epicondylitis Extended Test Results Negative PT-OP-M Strength Start: 09/20/24 16:05 Freq: Status: Active Protocol: Document 09/20/24 15:15 DCW (Rec: 09/21/24 12:51 DCW [id number]) Shoulder Strength Shoulder Manual Muscle Testing Right Flexion 5 Normal Abduction (C5) 5 Normal External Rotation 5 Normal Internal Rotation 5 Normal Left Flexion 5 Normal Abduction (C5) 5 Normal External Rotation 5 Normal Internal Rotation 5 Normal Elbow/Forearm Strength Elbow and Forearm Manual Muscle Testing Right Flexion (C6) 5 Normal Extension (C7) 5 Normal Pronation 5 Normal Supination 5 Normal Left Flexion (C6) 5 Normal Extension (C7) 5 Normal Pronation 5 Normal Supination 5 Normal Wrist Strength Wrist Manual Muscle Testing Right Flexion (C7) 5 Normal Extension (C6) 5 Normal Ulnar Deviation 5 Normal Radial Deviation 5 Normal Left Flexion (C7) 5 Normal Extension (C6) 5 Normal Ulnar Deviation 5 Normal Radial Deviation 5 Normal Hand Classifier Operator/Pinch Strength Hand Dominance Hand Dominance Right Hand Strength Right Classifier Operator (lbs) 80 Comments Three-trial average (80, 80, 80) Left Classifier Operator (lbs) 90 Comments Three-trial average (100, 80, 90) PT-OP-Q Treatments Start: 09/20/24 16:05 Freq: Status: Active Protocol: Document 10/01/24 10:45 SP (Rec: 10/01/24 12:55 SP Laptop) Therapeutic Exercises Sitting Exercises Wrist Flexion Sitting Exercise Name 4-way wrist extension, flexion , ulnar and radial deviation. Side right Resistance Lv 3 anchored under foot Reps/Minutes 3x10 (BID) Comments forearm maintained on thigh, occ cues for tb positioning. Pronation Sitting Exercise Name Pronation/Supination Side right Resistance TB #3 iroqu[place] green, anchored under foot, inspection engineer jar top and TB #3 UD/RD Reps/Minutes 30 reps Comments Improved forearm on thigh, occ cue eccentric return Therapeutic Activity Therapeutic Activity UD/RD resisted activities Name next tx Comments strengthen support open hard can cat food Lift item into microwave Name Verbal instruction- review next tx Manual Therapy Treatment Consent Patient gave verbal consent for manual Yes treatment Soft Tissue Mobilization Forearm Body Location R common extensor tendon Mobilization Type Cross-Friction,Sustained Pressure,Other Intensity/Depth Moderate Body Position Hooklying Comments Gentle STM, MWM AROM forearm pronation, supination, extension and flexion. Taping 1 Body Location R Lateral epicondyle Treatment Focus decompression and MF support to pain reduction Type of Tape Kinesio Tape Comments x over lateral epicondyle- good response Self-Care/Home Management Treatment Education Patient Education Body Mechanics,Joint Protection,Pain Management, Safety Other Education Recommendation using RUE stationary in quadruped to give relief from painting tasks right now and painting with LUE, verbalized understanding. Instruction on proper donning/positioning of elbow strap distal CET for support during activities that could cause irritation and be mindful to give breaks for recovery. PT-OP-T Assessment and Plan Start: 09/20/24 16:05 Freq: Status: Active Protocol: Document 10/01/24 10:45 SP (Rec: 10/01/24 12:55 SP Laptop) Physical Therapy Assessment Goals Three Impairment Tenderness to palpation of right common extensor tendon Mcc Goal (LTG) Pt to demonstrate improvement of tone and tenderness of right forearm to WNL in order to return to normal home activities. LTG Duration 11/20/24 Two Impairment Pt exhibits mild weakness with right inspection engineer (80# R vs 90# L) Mcc Goal (LTG) Pt to improve right inspection engineer strength to >90# in order to improve ability to open jars LTG Duration 11/20/24 One Impairment Pt does not have an appropriate home exercise program Short Term Goal (STG) Pt to be independent and compliant with an appropriate HEP STG Duration 10/20/24 Assessment Summary Assessment Pt responded well to manual, continued ed for self STMs and MWM if beneficial. Education on using RLE for support while LUE perform painting with tasks home right now. Next tx discuss use of CP for pain control/reduction/recovery. Physical Therapy Plan Frequency and Duration Frequency of Treatment 2x/Week Plan of Care Start Date 09/20/24 Plan of Care End Date 11/20/24 Therapeutic Interventions Therapeutic Interventions Home Exercise Program,Joint Mobilizations,Manual Therapy, Neuromuscular Re-education, Patient/Caregiver Education, Self-Care/Home Management,Soft Tissue Mobilization, Therapeutic Activities, Therapeutic Exercises Modalities Cold Pack/Ice Massage,Electric Stimulation,Hot Packs, Ultrasound Next Visit Focus/Plan Next Note Type Treatment Note Next Visit Plan Add CP for pain control, RD/UE with wt ball at head level next tx. Recheck Ktaping and if updating modification suggested in quadruped painting LUE performance, RUE WB stationary. POC: STM, forearm strengthening, flexibility
--- NOTE | 2024-10-04 16:03 | PT.OTN ---
Current Diagnoses Dorsalgia, unspecified (10/04/24) Lateral epicondylitis, right elbow (10/04/24) Unspecified injury of right shoulder and upper arm, initial encounter (10/04/24) Unspecified injury of right shoulder and upper arm, subsequent encounter (10/04/24) Physical Therapy Treatment Note PT-OP-A Visit Information Start: 09/20/24 16:05 Freq: Status: Active Protocol: Document 10/04/24 15:15 DCW (Rec: 10/04/24 16:03 DCW [id number]) Out-Patient Physical Therapy Visit Information Visit Information Visit Type Treatment Note Visit Start Time 15:15 Visit Stop Time 16:00 Visit Number 5 Number of AIRCRAFT LOG CLERK Visits 0 Evaluation Information Evaluation Date 09/20/24 PT-OP-B Current Condition Start: 09/20/24 16:05 Freq: Status: Active Protocol: Document 09/20/24 15:15 DCW (Rec: 09/21/24 13:00 DCW [id number]) Current Condition History of Current Condition Onset Date 4 month history Current Complaints right arm pain History of Current Condition Pt is a 78 year old male presenting with a four month history of right arm pain. 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 There' s a lot of tingling, but I'm used to it, I just avoid triggering activities. Notes that after moving here in April, he was unpacking boxes, lifted something out of a large box, and felt something pull in his right arm. Was fairly sore and limited the use of his arm, but then worsened after falling, reports he tripped, fell forward, and caught himself with his hands, which worsened the pain in his right arm. 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 Does note a history of lateral epicondylitis. PT-OP-C Subjective Start: 09/20/24 16:05 Freq: Status: Active Protocol: Document 10/04/24 15:15 DCW (Rec: 10/04/24 16:03 DCW [id number]) OP-PT Subjective Patient Comments Patient Comments I was doing pretty well, but then I overdid things. PT-OP-F Manual Assessment Start: 09/20/24 16:05 Freq: Status: Active Protocol: Document 09/20/24 15:15 DCW (Rec: 09/21/24 12:51 DCW [id number]) Manual Assessments Soft Tissue Assessment Soft Tissue Mobility Assessment Tenderness to palpation 3/4: Wincing and withdraw along right common extensor tendon, 1/4: Complaint of pain along right long head tendon Joint Mobility Assessment Joint Mobility Assessment Functional joint mobility WNL PT-OP-K Range of Motion Start: 09/20/24 16:05 Freq: Status: Active Protocol: Document 09/20/24 15:15 DCW (Rec: 09/21/24 12:51 DCW [id number]) Shoulder Goniometric Range of Motion Shoulder Left Active Shoulder ROM WFL Yes Testing Position Sitting Flexion 180 Abduction 180 External Rotation at 0 degrees Abduction 65 Right Active Shoulder ROM WFL Yes Testing Position Sitting Flexion 180 Abduction 180 External Rotation at 0 degrees Abduction 65 PT-OP-L Special Tests Start: 09/20/24 16:05 Freq: Status: Active Protocol: Document 09/20/24 15:15 DCW (Rec: 09/21/24 12:51 DC [id number]) Special Tests Shoulder Special Tests Yergason's Biceps Test Results Negative Speed's Biceps Test Results Negative Passive ER Rotator Cuff Test Results Negative Lift-Off Rotator Cuff Test Results Negative Cooper Primo Impingement Test Results Negative Grind Labrum Test Results Negative Empty Can Test Results Negative Drop Arm Rotator Cuff Test Results Negative Clunk Test Test Results Negative Belly Press Test Results Negative Apprehension Test Test Results Negative Wrist/Hand Special Tests Lateral Epicondylitis Flexed Test Results Negative Lateral Epicondylitis Extended Test Results Negative PT-OP-M Strength Start: 09/20/24 16:05 Freq: Status: Active Protocol: Document 09/20/24 15:15 DCW (Rec: 09/21/24 12:51 NMW [id number]) Shoulder Strength Shoulder Manual Muscle Testing Right Flexion 5 Normal Abduction (C5) 5 Normal External Rotation 5 Normal Internal Rotation 5 Normal Left Flexion 5 Normal Abduction (C5) 5 Normal External Rotation 5 Normal Internal Rotation 5 Normal Elbow/Forearm Strength Elbow and Forearm Manual Muscle Testing Right Flexion (C6) 5 Normal Extension (C7) 5 Normal Pronation 5 Normal Supination 5 Normal Left Flexion (C6) 5 Normal Extension (C7) 5 Normal Pronation 5 Normal Supination 5 Normal Wrist Strength Wrist Manual Muscle Testing Right Flexion (C7) 5 Normal Extension (C6) 5 Normal Ulnar Deviation 5 Normal Radial Deviation 5 Normal Left Flexion (C7) 5 Normal Extension (C6) 5 Normal Ulnar Deviation 5 Normal Radial Deviation 5 Normal Hand Fusing Line Inspector/Pinch Strength Hand Dominance Hand Dominance Right Hand Strength Right Fusing Line Inspector (lbs) 80 Comments Three-trial average (80, 80, 80) Left Fusing Line Inspector (lbs) 90 Comments Three-trial average (100, 80, 90) PT-OP-Q Treatments Start: 09/20/24 16:05 Freq: Status: Active Protocol: Document 10/04/24 15:15 DCW (Rec: 10/04/24 16:03 DCW [id number]) Therapeutic Exercises Sitting Exercises Wrist Extension Sitting Exercise Name Wrist Extension Side right Resistance 3.3# ball Ball Catch Sitting Exercise Name Palm-down self-throw ball catch Side right Resistance Red 3.3# ball Flexbar Sitting Exercise Name Flexbar - Pro/Sup, Twist, Circles Side bilateral Resistance Red Wrist Stretch Sitting Exercise Name Flexion - stretch common extensors Side right Reps/Minutes 30 hold Pronation Sitting Exercise Name Hammer /c 2# weight added Side right Therapeutic Activity Therapeutic Activity UD/RD resisted activities Name Rotation of 5.5# blue ball against gravity Comments strengthen support open hard can cat food Manual Therapy Treatment Consent Patient gave verbal consent for manual Yes treatment Soft Tissue Mobilization R shld Body Location R pec, bicep Mobilization Type Rolling,Sustained Pressure, Other Body Position Sitting Comments gentle STMs and MWM humeral IR /ER, elbow flex/ext Neck Body Location SOR, B UT, SCM, LS Mobilization Type Rolling,Sustained Pressure, Other Intensity/Depth Moderate Body Position Sitting Comments slightly tender Forearm Body Location R common extensor tendon Mobilization Type Cross-Friction,Sustained Pressure,Other Intensity/Depth Moderate Body Position Sitting Comments Gentle STM, MWM forearm pronation, supination, extension and flexion. PT-OP-T Assessment and Plan Start: 09/20/24 16:05 Freq: Status: Active Protocol: Document 10/04/24 15:15 DCW (Rec: 10/04/24 16:03 DCW [id number]) Physical Therapy Assessment Impairments Impairments Pain,Soft Tissue Mobility, Strength Goals Three Impairment Tenderness to palpation of right common extensor tendon Skilled Nursing Goal (LTG) Pt to demonstrate improvement of tone and tenderness of right forearm to WNL in order to return to normal home activities. LTG Duration 11/20/24 Two Impairment Pt exhibits mild weakness with right blender operator (80# R vs 90# L) Card Lacer Jacquard Goal (LTG) Pt to improve right blender operator strength to >90# in order to improve ability to open jars LTG Duration 11/20/24 One Impairment Pt does not have an appropriate home exercise program Short Term Goal (STG) Pt to be independent and compliant with an appropriate HEP STG Duration 10/20/24 Assessment Summary Assessment Pt tolerating well today, had good response to strengthening . Did note things were feeling less painful, but overall forearm fatigues fairly quickly. Continue to focus on STM, flexibility, strengthening. Did not retape due to small skin redness following removal of old tape, will give skin time to heal. Physical Therapy Plan Frequency and Duration Frequency of Treatment 2x/Week Plan of Care Start Date 09/20/24 Plan of Care End Date 11/20/24 Therapeutic Interventions Therapeutic Interventions Home Exercise Program,Joint Mobilizations,Manual Therapy, Neuromuscular Re-education, Patient/Caregiver Education, Self-Care/Home Management,Soft Tissue Mobilization, Therapeutic Activities, Therapeutic Exercises Modalities Cold Pack/Ice Massage,Electric Stimulation,Hot Packs, Ultrasound Next Visit Focus/Plan Next Note Type Treatment Note Next Visit Plan Add CP for pain control, RD/UE with wt ball at head level next tx. Recheck Ktaping and if updating modification suggested in quadruped painting JOSEE performance, DEACONE WB stationary. POC: STM, forearm strengthening, flexibility
--- NOTE | 2024-10-06 12:18 | PT.OTN ---
Current Diagnoses Dorsalgia, unspecified (10/06/24) Lateral epicondylitis, right elbow (10/06/24) Unspecified injury of right shoulder and upper arm, initial encounter (10/06/24) Unspecified injury of right shoulder and upper arm, subsequent encounter (10/06/24) Physical Therapy Treatment Note PT-OP-A Visit Information Start: 09/20/24 16:05 Freq: Status: Active Protocol: Document 10/06/24 11:30 DCW (Rec: 10/06/24 12:18 DCW [id number]) Out-Patient Physical Therapy Visit Information Visit Information Visit Type Treatment Note Visit Start Time 11:30 Visit Stop Time 12:15 Visit Number 6 Number of PSYCHIATRIC NP Visits 0 Evaluation Information Evaluation Date 09/20/24 PT-OP-B Current Condition Start: 09/20/24 16:05 Freq: Status: Active Protocol: Document 09/20/24 15:15 DCW (Rec: 09/21/24 13:00 DCW [id number]) Current Condition History of Current Condition Onset Date 4 month history Current Complaints right arm pain History of Current Condition Pt is a 78 year old male presenting with a four month history of right arm pain. 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 There' s a lot of tingling, but I'm used to it, I just avoid triggering activities. Notes that after moving here in April, he was unpacking boxes, lifted something out of a large box, and felt something pull in his right arm. Was fairly sore and limited the use of his arm, but then worsened after falling, reports he tripped, fell forward, and caught himself with his hands, which worsened the pain in his right arm. 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 Does note a history of lateral epicondylitis. PT-OP-C Subjective Start: 09/20/24 16:05 Freq: Status: Active Protocol: Document 10/06/24 11:30 DCW (Rec: 10/06/24 12:18 DCW [id number]) OP-PT Subjective Patient Comments Patient Comments I'm doing better in spite abusing myself yesterday. 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 Also notes that the jar that had been giving me problems has been easier. PT-OP-F Manual Assessment Start: 09/20/24 16:05 Freq: Status: Active Protocol: Document 09/20/24 15:15 DCW (Rec: 09/21/24 12:51 DCW [id number]) Manual Assessments Soft Tissue Assessment Soft Tissue Mobility Assessment Tenderness to palpation 3/4: Wincing and withdraw along right common extensor tendon, 1/4: Complaint of pain along right long head tendon Joint Mobility Assessment Joint Mobility Assessment Functional joint mobility WNL PT-OP-K Range of Motion Start: 09/20/24 16:05 Freq: Status: Active Protocol: Document 09/20/24 15:15 DCW (Rec: 09/21/24 12:51 DCW [id number]) Shoulder Goniometric Range of Motion Shoulder Left Active Shoulder ROM WFL Yes Testing Position Sitting Flexion 180 Abduction 180 External Rotation at 0 degrees Abduction 65 Right Active Shoulder ROM WFL Yes Testing Position Sitting Flexion 180 Abduction 180 External Rotation at 0 degrees Abduction 65 PT-OP-L Special Tests Start: 09/20/24 16:05 Freq: Status: Active Protocol: Document 09/20/24 15:15 DCW (Rec: 09/21/24 12:51 DCW [id number]) Special Tests Shoulder Special Tests Yergason's Biceps Test Results Negative Speed's Biceps Test Results Negative Passive ER Rotator Cuff Test Results Negative Lift-Off Rotator Cuff Test Results Negative Cooper Primo Impingement Test Results Negative Grind Labrum Test Results Negative Empty Can Test Results Negative Drop Arm Rotator Cuff Test Results Negative Clunk Test Test Results Negative Belly Press Test Results Negative Apprehension Test Test Results Negative Wrist/Hand Special Tests Lateral Epicondylitis Flexed Test Results Negative Lateral Epicondylitis Extended Test Results Negative PT-OP-M Strength Start: 09/20/24 16:05 Freq: Status: Active Protocol: Document 09/20/24 15:15 DCW (Rec: 09/21/24 12:51 DCW [id number]) Shoulder Strength Shoulder Manual Muscle Testing Right Flexion 5 Normal Abduction (C5) 5 Normal External Rotation 5 Normal Internal Rotation 5 Normal Left Flexion 5 Normal Abduction (C5) 5 Normal External Rotation 5 Normal Internal Rotation 5 Normal Elbow/Forearm Strength Elbow and Forearm Manual Muscle Testing Right Flexion (C6) 5 Normal Extension (C7) 5 Normal Pronation 5 Normal Supination 5 Normal Left Flexion (C6) 5 Normal Extension (C7) 5 Normal Pronation 5 Normal Supination 5 Normal Wrist Strength Wrist Manual Muscle Testing Right Flexion (C7) 5 Normal Extension (C6) 5 Normal Ulnar Deviation 5 Normal Radial Deviation 5 Normal Left Flexion (C7) 5 Normal Extension (C6) 5 Normal Ulnar Deviation 5 Normal Radial Deviation 5 Normal Hand Pen And Pencil Repairer/Pinch Strength Hand Dominance Hand Dominance Right Hand Strength Right Pen And Pencil Repairer (lbs) 80 Comments Three-trial average (80, 80, 80) Left Pen And Pencil Repairer (lbs) 90 Comments Three-trial average (100, 80, 90) PT-OP-Q Treatments Start: 09/20/24 16:05 Freq: Status: Active Protocol: Document 10/06/24 11:30 DCW (Rec: 10/06/24 12:18 DCW [id number]) Therapeutic Exercises Sitting Exercises Ball Catch Sitting Exercise Name Palm-down self-throw ball catch Side right Resistance Red 3.3# ball Flexbar Sitting Exercise Name Flexbar - Pro/Sup, Twist, Circles Side bilateral Resistance Green Pronation Sitting Exercise Name PVC /c 1# weight added Side right Standing Exercises Body Blade Standing Exercise Name Body Blade Side right Resistance Yellow Comments Flexion, Abduction Other Exercises Wall Push-ups Other Exercise Name Wall push-ups Comments <> and W hand position - relatively easy Manual Therapy Treatment Consent Patient gave verbal consent for manual Yes treatment Soft Tissue Mobilization R shld Body Location R pec, bicep Mobilization Type Rolling,Sustained Pressure, Other Body Position Sitting Comments gentle STMs and MWM humeral IR /ER, elbow flex/ext Neck Body Location SOR, B UT, SCM, LS Mobilization Type Rolling,Sustained Pressure, Other Intensity/Depth Moderate Body Position Sitting Comments slightly tender Forearm Body Location R common extensor tendon Mobilization Type Cross-Friction,Sustained Pressure,Other Intensity/Depth Moderate Body Position Sitting Comments Gentle STM, MWM forearm pronation, supination, extension and flexion. PT-OP-T Assessment and Plan Start: 09/20/24 16:05 Freq: Status: Active Protocol: Document 10/06/24 11:30 DCW (Rec: 10/06/24 12:18 DCW [id number]) Physical Therapy Assessment Impairments Impairments Pain,Soft Tissue Mobility, Strength Goals Three Impairment Tenderness to palpation of right common extensor tendon Assisted Goal (LTG) Pt to demonstrate improvement of tone and tenderness of right forearm to WNL in order to return to normal home activities. LTG Duration 11/20/24 Two Impairment Pt exhibits mild weakness with right systems mgr (80# R vs 90# L) Assisted Goal (LTG) Pt to improve right systems mgr strength to >90# in order to improve ability to open jars LTG Duration 11/20/24 One Impairment Pt does not have an appropriate home exercise program Short Term Goal (STG) Pt to be independent and compliant with an appropriate HEP STG Duration 10/20/24 Assessment Summary Assessment Pt continues to respond very well to treatment, no having discomfort performing tasks/ projects around home. If continues to progress with no increased pain, may be approaching discharge. Physical Therapy Plan Frequency and Duration Frequency of Treatment 2x/Week Plan of Care Start Date 09/20/24 Plan of Care End Date 11/20/24 Therapeutic Interventions Therapeutic Interventions Home Exercise Program,Joint Mobilizations,Manual Therapy, Neuromuscular Re-education, Patient/Caregiver Education, Self-Care/Home Management,Soft Tissue Mobilization, Therapeutic Activities, Therapeutic Exercises Modalities Cold Pack/Ice Massage,Electric Stimulation,Hot Packs, Ultrasound Next Visit Focus/Plan Next Note Type Treatment Note Next Visit Plan Add CP for pain control, RD/UE with wt ball at head level next tx. Recheck Ktaping and if updating modification suggested in quadruped painting LUE performance, RUE WB stationary. POC: STM, forearm strengthening, flexibility
--- NOTE | 2024-10-11 11:30 | PT.OTN ---
Current Diagnoses Dorsalgia, unspecified (10/11/24) Lateral epicondylitis, right elbow (10/11/24) Unspecified injury of right shoulder and upper arm, initial encounter (10/11/24) Unspecified injury of right shoulder and upper arm, subsequent encounter (10/11/24) Physical Therapy Treatment Note PT-OP-A Visit Information Start: 09/20/24 16:05 Freq: Status: Active Protocol: Document 10/11/24 10:50 SP (Rec: 10/11/24 11:35 SP [id number]) Out-Patient Physical Therapy Visit Information Visit Information Visit Type Treatment Note Visit Note MARICHUY Jorgensen observed tx with permission of pt. Visit Start Time 10:50 Visit Stop Time 11:30 Visit Number 7 Number of CNC GRINDER Visits 1 Evaluation Information Evaluation Date 09/20/24 PT-OP-B Current Condition Start: 09/20/24 16:05 Freq: Status: Active Protocol: Document 09/20/24 15:15 DCW (Rec: 09/21/24 13:00 DCW [id number]) Current Condition History of Current Condition Onset Date 4 month history Current Complaints right arm pain History of Current Condition Pt is a 78 year old male presenting with a four month history of right arm pain. 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 There' s a lot of tingling, but I'm used to it, I just avoid triggering activities. Notes that after moving here in April, he was unpacking boxes, lifted something out of a large box, and felt something pull in his right arm. Was fairly sore and limited the use of his arm, but then worsened after falling, reports he tripped, fell forward, and caught himself with his hands, which worsened the pain in his right arm. 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 Does note a history of lateral epicondylitis. PT-OP-C Subjective Start: 09/20/24 16:05 Freq: Status: Active Protocol: Document 10/11/24 10:50 SP (Rec: 10/11/24 11:35 SP [id number]) OP-PT Subjective Patient Comments Patient Comments Pt reports pain improving and not having as much with activities, once in while feel twinge like when opens jar, wears his lateral eipcondyle strap unless itches. Has been staining cedar shake singles. Lately has been staining fence and can use full body and change hands vs when was on hands knees prior. He states doing well with HEP and only finger ext still discomfort and weakness challenge. PT-OP-F Manual Assessment Start: 09/20/24 16:05 Freq: Status: Active Protocol: Document 09/20/24 15:15 DCW (Rec: 09/21/24 12:51 DCW [id number]) Manual Assessments Soft Tissue Assessment Soft Tissue Mobility Assessment Tenderness to palpation 3/4: Wincing and withdraw along right common extensor tendon, 1/4: Complaint of pain along right long head tendon Joint Mobility Assessment Joint Mobility Assessment Functional joint mobility WNL PT-OP-K Range of Motion Start: 09/20/24 16:05 Freq: Status: Active Protocol: Document 09/20/24 15:15 DCW (Rec: 09/21/24 12:51 DCW [id number]) Shoulder Goniometric Range of Motion Shoulder Left Active Shoulder ROM WFL Yes Testing Position Sitting Flexion 180 Abduction 180 External Rotation at 0 degrees Abduction 65 Right Active Shoulder ROM WFL Yes Testing Position Sitting Flexion 180 Abduction 180 External Rotation at 0 degrees Abduction 65 PT-OP-L Special Tests Start: 09/20/24 16:05 Freq: Status: Active Protocol: Document 09/20/24 15:15 DCW (Rec: 09/21/24 12:51 DCW [id number]) Special Tests Shoulder Special Tests Yergason's Biceps Test Results Negative Speed's Biceps Test Results Negative Passive ER Rotator Cuff Test Results Negative Lift-Off Rotator Cuff Test Results Negative Cooper Primo Impingement Test Results Negative Grind Labrum Test Results Negative Empty Can Test Results Negative Drop Arm Rotator Cuff Test Results Negative Clunk Test Test Results Negative Belly Press Test Results Negative Apprehension Test Test Results Negative Wrist/Hand Special Tests Lateral Epicondylitis Flexed Test Results Negative Lateral Epicondylitis Extended Test Results Negative PT-OP-M Strength Start: 09/20/24 16:05 Freq: Status: Active Protocol: Document 09/20/24 15:15 DCW (Rec: 09/21/24 12:51 DCW [id number]) Shoulder Strength Shoulder Manual Muscle Testing Right Flexion 5 Normal Abduction (C5) 5 Normal External Rotation 5 Normal Internal Rotation 5 Normal Left Flexion 5 Normal Abduction (C5) 5 Normal External Rotation 5 Normal Internal Rotation 5 Normal Elbow/Forearm Strength Elbow and Forearm Manual Muscle Testing Right Flexion (C6) 5 Normal Extension (C7) 5 Normal Pronation 5 Normal Supination 5 Normal Left Flexion (C6) 5 Normal Extension (C7) 5 Normal Pronation 5 Normal Supination 5 Normal Wrist Strength Wrist Manual Muscle Testing Right Flexion (C7) 5 Normal Extension (C6) 5 Normal Ulnar Deviation 5 Normal Radial Deviation 5 Normal Left Flexion (C7) 5 Normal Extension (C6) 5 Normal Ulnar Deviation 5 Normal Radial Deviation 5 Normal Hand Oil Program Compliance Specialist/Pinch Strength Hand Dominance Hand Dominance Right Hand Strength Right Oil Program Compliance Specialist (lbs) 80 Comments Three-trial average (80, 80, 80) Left Oil Program Compliance Specialist (lbs) 90 Comments Three-trial average (100, 80, 90) PT-OP-Q Treatments Start: 09/20/24 16:05 Freq: Status: Active Protocol: Document 10/11/24 10:50 SP (Rec: 10/11/24 11:35 SP [id number]) Therapeutic Exercises Sitting Exercises Flexbar Sitting Exercise Name Flexbar - Pro/Sup, Twists Flex /Ext, Fwd/Bwd/lateral/Circles CW/CCW Side bilateral Resistance Green> Blue flex bar Reps/Minutes 10 reps each Comments elbows bent vs ext, reported better effort extended no pain Wrist Stretch Sitting Exercise Name Flexion and Extension Side right Reps/Minutes 30 hold each Comments arms out front Standing Exercises Wrist TB Standing Exercise Name Pronation/Supination, UD/RD Side right Resistance Tb #4 dark blue Reps/Minutes 10 reps each Comments cued humerus close to side, just forearm/wrist movement UE/RD tight/untight bike seat knob Side right Equipment Used bike knob Reps/Minutes 10 reps pre/post manual Comments UD/RD tighten/untighten Body Blade Standing Exercise Name Body Blade: Flexion & Abduction Side right Resistance Yellow Reps/Minutes 30 sec each direction Comments cued upright posture Other Exercises Wall Push-ups Other Exercise Name Wall push-ups: Ws Side bilateral Comments wall W position x15 > floor wider positioning x20 no pain Manual Therapy Treatment Consent Patient gave verbal consent for manual Yes treatment Soft Tissue Mobilization Forearm Body Location R common extensor tendon, CFT, intrinics 4-5 MCP Mobilization Type Cross-Friction,Sustained Pressure,Other Intensity/Depth Moderate Body Position Sitting Comments Gentle STM, MWM forearm pronation, supination, extension and flexion, open close hand. PT-OP-T Assessment and Plan Start: 09/20/24 16:05 Freq: Status: Active Protocol: Document 10/11/24 10:50 SP (Rec: 10/11/24 11:35 SP [id number]) Physical Therapy Assessment Goals Three Impairment Tenderness to palpation of right common extensor tendon Shampoo Technician Goal (LTG) Pt to demonstrate improvement of tone and tenderness of right forearm to WNL in order to return to normal home activities. LTG Duration 11/20/24 Two Impairment Pt exhibits mild weakness with right blacksmith assistant (80# R vs 90# L) Shampoo Technician Goal (LTG) Pt to improve right blacksmith assistant strength to >90# in order to improve ability to open jars LTG Duration 11/20/24 One Impairment Pt does not have an appropriate home exercise program Short Term Goal (STG) Pt to be independent and compliant with an appropriate HEP STG Duration 10/20/24 Assessment Summary Assessment Pt good feedback response to decrease some tension forearm and hand post manual and ed self application. Trialed resisted upright bicycle knob for twisting motion close can find in clinic for opening jar with just slight forearm flexor discomfort. Continued resisted flex bar and theraband standing wrist strengthening HEP multidirectional with no adverse affect, cues for postural set up. Physical Therapy Plan Frequency and Duration Frequency of Treatment 2x/Week Plan of Care Start Date 09/20/24 Plan of Care End Date 11/20/24 Therapeutic Interventions Therapeutic Interventions Home Exercise Program,Joint Mobilizations,Manual Therapy, Neuromuscular Re-education, Patient/Caregiver Education, Self-Care/Home Management,Soft Tissue Mobilization, Therapeutic Activities, Therapeutic Exercises Modalities Cold Pack/Ice Massage,Electric Stimulation,Hot Packs, Ultrasound Next Visit Focus/Plan Next Note Type Treatment Note Next Visit Plan Add CP for pain control, end range extension manual for WB ADLs if needed POC: STM, forearm strengthening, flexibility
--- NOTE | 2024-10-14 15:16 | PT.OTN ---
Current Diagnoses Dorsalgia, unspecified (10/14/24) Lateral epicondylitis, right elbow (10/14/24) Unspecified injury of right shoulder and upper arm, initial encounter (10/14/24) Unspecified injury of right shoulder and upper arm, subsequent encounter (10/14/24) Physical Therapy Treatment Note PT-OP-A Visit Information Start: 09/20/24 16:05 Freq: Status: Active Protocol: Document 10/14/24 14:32 SP (Rec: 10/14/24 15:33 SP [id number]) Out-Patient Physical Therapy Visit Information Visit Information Visit Type Treatment Note Visit Note SPTJose Jorgensen observed tx with permission of pt. Visit Start Time 14:32 Visit Stop Time 15:16 Visit Number 8 Number of WEIGHT TRAINING INSTRUCTOR Visits 2 Evaluation Information Evaluation Date 09/20/24 PT-OP-B Current Condition Start: 09/20/24 16:05 Freq: Status: Active Protocol: Document 09/20/24 15:15 DCW (Rec: 09/21/24 13:00 DCW [id number]) Current Condition History of Current Condition Onset Date 4 month history Current Complaints right arm pain History of Current Condition Pt is a 78 year old male presenting with a four month history of right arm pain. 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 There' s a lot of tingling, but I'm used to it, I just avoid triggering activities. Notes that after moving here in April, he was unpacking boxes, lifted something out of a large box, and felt something pull in his right arm. Was fairly sore and limited the use of his arm, but then worsened after falling, reports he tripped, fell forward, and caught himself with his hands, which worsened the pain in his right arm. Overall feels that his activity has decreased, and his radar scientist is weaker in his right arm. Does note a history of lateral epicondylitis. PT-OP-C Subjective Start: 09/20/24 16:05 Freq: Status: Active Protocol: Document 10/14/24 14:32 SP (Rec: 10/14/24 15:33 SP [id number]) OP-PT Subjective Patient Comments Patient Comments Pt reports R hand and arm doing better, only sometimes tweak with twisting motion (UD /RD). 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 PT-OP-F Manual Assessment Start: 09/20/24 16:05 Freq: Status: Active Protocol: Document 09/20/24 15:15 DCW (Rec: 09/21/24 12:51 DCW [id number]) Manual Assessments Soft Tissue Assessment Soft Tissue Mobility Assessment Tenderness to palpation 3/4: Wincing and withdraw along right common extensor tendon, 1/4: Complaint of pain along right long head tendon Joint Mobility Assessment Joint Mobility Assessment Functional joint mobility WNL PT-OP-K Range of Motion Start: 09/20/24 16:05 Freq: Status: Active Protocol: Document 09/20/24 15:15 DCW (Rec: 09/21/24 12:51 DCW [id number]) Shoulder Goniometric Range of Motion Shoulder Left Active Shoulder ROM WFL Yes Testing Position Sitting Flexion 180 Abduction 180 External Rotation at 0 degrees Abduction 65 Right Active Shoulder ROM WFL Yes Testing Position Sitting Flexion 180 Abduction 180 External Rotation at 0 degrees Abduction 65 PT-OP-L Special Tests Start: 09/20/24 16:05 Freq: Status: Active Protocol: Document 09/20/24 15:15 DCW (Rec: 09/21/24 12:51 DCW [id number]) Special Tests Shoulder Special Tests Yergason's Biceps Test Results Negative Speed's Biceps Test Results Negative Passive ER Rotator Cuff Test Results Negative Lift-Off Rotator Cuff Test Results Negative Cooper Primo Impingement Test Results Negative Grind Labrum Test Results Negative Empty Can Test Results Negative Drop Arm Rotator Cuff Test Results Negative Clunk Test Test Results Negative Belly Press Test Results Negative Apprehension Test Test Results Negative Wrist/Hand Special Tests Lateral Epicondylitis Flexed Test Results Negative Lateral Epicondylitis Extended Test Results Negative PT-OP-M Strength Start: 09/20/24 16:05 Freq: Status: Active Protocol: Document 09/20/24 15:15 DCW (Rec: 09/21/24 12:51 DCW [id number]) Shoulder Strength Shoulder Manual Muscle Testing Right Flexion 5 Normal Abduction (C5) 5 Normal External Rotation 5 Normal Internal Rotation 5 Normal Left Flexion 5 Normal Abduction (C5) 5 Normal External Rotation 5 Normal Internal Rotation 5 Normal Elbow/Forearm Strength Elbow and Forearm Manual Muscle Testing Right Flexion (C6) 5 Normal Extension (C7) 5 Normal Pronation 5 Normal Supination 5 Normal Left Flexion (C6) 5 Normal Extension (C7) 5 Normal Pronation 5 Normal Supination 5 Normal Wrist Strength Wrist Manual Muscle Testing Right Flexion (C7) 5 Normal Extension (C6) 5 Normal Ulnar Deviation 5 Normal Radial Deviation 5 Normal Left Flexion (C7) 5 Normal Extension (C6) 5 Normal Ulnar Deviation 5 Normal Radial Deviation 5 Normal Hand Arc Cutter/Pinch Strength Hand Dominance Hand Dominance Right Hand Strength Right Arc Cutter (lbs) 80 Comments Three-trial average (80, 80, 80) Left Arc Cutter (lbs) 90 Comments Three-trial average (100, 80, 90) PT-OP-Q Treatments Start: 09/20/24 16:05 Freq: Status: Active Protocol: Document 10/14/24 14:32 SP (Rec: 10/14/24 15:33 SP [id number]) Therapeutic Exercises Sitting Exercises Ball Catch Sitting Exercise Name Palm-down self-throw ball <> catch (standing) Side right Resistance Red 3.3# ball 1. into rebounder 2. hard into standing mat Equipment Used 3. Ed: slow then quick demo throw/eccentric return Reps/Minutes multiple reps to each surface Comments Cues more upright posture, L ft fwd, wrist flex point target, ecc catch Flexbar Sitting Exercise Name Flexbar: Shld FF, Pro/Sup, Twists Flex/Ext, Fwd/Bwd/ lateral/Circles CW/CCW Side bilateral Resistance Blue flex bar Reps/Minutes 10 reps each Comments elbows bent vs ext, reported better effort extended no pain Standing Exercises Suitcase Carry Side right Resistance 1. 6.6 small med ball 2. 10 # DB on end Reps/Minutes 1. 50 lap x2 2. 50 ft x1 lap Comments reports good challenge radar scientist fingers toward floor Wrist TB Standing Exercise Name Pronation/Supination, UD/RD Side right Resistance Tb #4 dark blue, humerus at side Reps/Minutes 20 reps each Comments Cued head up, reports fatigued in forearm but no pain. UE/RD tight/untight bike seat knob Side right Equipment Used bike (Positioned on its side) knob Reps/Minutes 1 min Comments UD/RD tighten/untighten- discomfort into UD Body Blade Standing Exercise Name Flexion & Abduction Side right Resistance 1. BLue Flex bar 2. Medium body blade Reps/Minutes 30 sec each direction each device Comments occ cues head up Other Exercises Plank BOSU ball drop Other Exercise Name UE ball bal on BOSU Equipment Used hands on flat side tilting to move dropped golf ball to middle hole Reps/Minutes 6 reps Comments no pain reported, core tiring challenge Plank UE step up/down Other Exercise Name lateral step up/down each side alternating Equipment Used floor<> 4 step Reps/Minutes several reps Comments no pain reported, core tiring challenge PT-OP-T Assessment and Plan Start: 09/20/24 16:05 Freq: Status: Active Protocol: Document 10/14/24 14:32 SP (Rec: 10/14/24 15:33 SP [id number]) Physical Therapy Assessment Goals Three Impairment Tenderness to palpation of right common extensor tendon Group Home Goal (LTG) Pt to demonstrate improvement of tone and tenderness of right forearm to WNL in order to return to normal home activities. LTG Duration 11/20/24 Two Impairment Pt exhibits mild weakness with right radar scientist (80# R vs 90# L) Hardware Sales Assistant Goal (LTG) Pt to improve right radar scientist strength to >90# in order to improve ability to open jars LTG Duration 11/20/24 One Impairment Pt does not have an appropriate home exercise program Short Term Goal (STG) Pt to be independent and compliant with an appropriate HEP STG Duration 10/20/24 Assessment Summary Assessment Pt responds well to all ther ex, reports good tiring challenge to weighted lumbrical radar scientist suitcase carrying, very taught UD/RD resisted rotation bike knob and plank WB dynamic activities. Only little discomfort Ulnar deviation tighten know to its max. He reports all other activity was fine, even throw/catch would like to return to. Physical Therapy Plan Frequency and Duration Frequency of Treatment 2x/Week Plan of Care Start Date 09/20/24 Plan of Care End Date 11/20/24 Therapeutic Interventions Therapeutic Interventions Home Exercise Program,Joint Mobilizations,Manual Therapy, Neuromuscular Re-education, Patient/Caregiver Education, Self-Care/Home Management,Soft Tissue Mobilization, Therapeutic Activities, Therapeutic Exercises Modalities Cold Pack/Ice Massage,Electric Stimulation,Hot Packs, Ultrasound Next Visit Focus/Plan Next Note Type Treatment Note Next Visit Plan Response to dynamic throw/ catch, carrying weight lumbrical radar scientist. Check if doing well, cancel WEIGHT TRAINING INSTRUCTOR appt on 10/19 and keep 10/21 appt with PT can DC, need cancel remaining appts. POC: STM, forearm strengthening, flexibility
--- NOTE | 2024-10-21 17:39 | PT.OTN ---
Current Diagnoses Dorsalgia, unspecified (10/21/24) Lateral epicondylitis, right elbow (10/21/24) Unspecified injury of right shoulder and upper arm, initial encounter (10/21/24) Unspecified injury of right shoulder and upper arm, subsequent encounter (10/21/24) Physical Therapy Treatment Note PT-OP-A Visit Information Start: 09/20/24 16:05 Freq: Status: Active Protocol: Document 10/21/24 17:00 DCW (Rec: 10/21/24 17:39 DCW [id number]) Out-Patient Physical Therapy Visit Information Visit Information Visit Type Discharge Summary Visit Start Time 17:00 Visit Stop Time 17:30 Visit Number 9 Number of SANFORIZER Visits 0 Evaluation Information Evaluation Date 09/20/24 PT-OP-B Current Condition Start: 09/20/24 16:05 Freq: Status: Active Protocol: Document 09/20/24 15:15 DCW (Rec: 09/21/24 13:00 DCW [id number]) Current Condition History of Current Condition Onset Date 4 month history Current Complaints right arm pain History of Current Condition Pt is a 78 year old male presenting with a four month history of right arm pain. 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 There' s a lot of tingling, but I'm used to it, I just avoid triggering activities. Notes that after moving here in April, he was unpacking boxes, lifted something out of a large box, and felt something pull in his right arm. Was fairly sore and limited the use of his arm, but then worsened after falling, reports he tripped, fell forward, and caught himself with his hands, which worsened the pain in his right arm. Overall feels that his activity has decreased, and his buffing turner and counter is weaker in his right arm. Does note a history of lateral epicondylitis. PT-OP-C Subjective Start: 09/20/24 16:05 Freq: Status: Active Protocol: Document 10/21/24 17:00 DCW (Rec: 10/21/24 17:39 DCW [id number]) OP-PT Subjective Patient Comments Patient Comments Pt reports his arm was a little sore after carrying a heavy ladder, but pain faded fairly quickly, he is feeling quite good at the moment. PT-OP-F Manual Assessment Start: 09/20/24 16:05 Freq: Status: Active Protocol: Document 09/20/24 15:15 DCW (Rec: 09/21/24 12:51 DCW [id number]) Manual Assessments Soft Tissue Assessment Soft Tissue Mobility Assessment Tenderness to palpation 3/4: Wincing and withdraw along right common extensor tendon, 1/4: Complaint of pain along right long head tendon Joint Mobility Assessment Joint Mobility Assessment Functional joint mobility WNL PT-OP-K Range of Motion Start: 09/20/24 16:05 Freq: Status: Active Protocol: Document 09/20/24 15:15 DCW (Rec: 09/21/24 12:51 DCW [id number]) Shoulder Goniometric Range of Motion Shoulder Left Active Shoulder ROM WFL Yes Testing Position Sitting Flexion 180 Abduction 180 External Rotation at 0 degrees Abduction 65 Right Active Shoulder ROM WFL Yes Testing Position Sitting Flexion 180 Abduction 180 External Rotation at 0 degrees Abduction 65 PT-OP-L Special Tests Start: 09/20/24 16:05 Freq: Status: Active Protocol: Document 09/20/24 15:15 DCW (Rec: 09/21/24 12:51 DCW [id number]) Special Tests Shoulder Special Tests Yergason's Biceps Test Results Negative Speed's Biceps Test Results Negative Passive ER Rotator Cuff Test Results Negative Lift-Off Rotator Cuff Test Results Negative Cooper Primo Impingement Test Results Negative Grind Labrum Test Results Negative Empty Can Test Results Negative Drop Arm Rotator Cuff Test Results Negative Clunk Test Test Results Negative Belly Press Test Results Negative Apprehension Test Test Results Negative Wrist/Hand Special Tests Lateral Epicondylitis Flexed Test Results Negative Lateral Epicondylitis Extended Test Results Negative PT-OP-M Strength Start: 09/20/24 16:05 Freq: Status: Active Protocol: Document 09/20/24 15:15 DCW (Rec: 09/21/24 12:51 DCW [id number]) Shoulder Strength Shoulder Manual Muscle Testing Right Flexion 5 Normal Abduction (C5) 5 Normal External Rotation 5 Normal Internal Rotation 5 Normal Left Flexion 5 Normal Abduction (C5) 5 Normal External Rotation 5 Normal Internal Rotation 5 Normal Elbow/Forearm Strength Elbow and Forearm Manual Muscle Testing Right Flexion (C6) 5 Normal Extension (C7) 5 Normal Pronation 5 Normal Supination 5 Normal Left Flexion (C6) 5 Normal Extension (C7) 5 Normal Pronation 5 Normal Supination 5 Normal Wrist Strength Wrist Manual Muscle Testing Right Flexion (C7) 5 Normal Extension (C6) 5 Normal Ulnar Deviation 5 Normal Radial Deviation 5 Normal Left Flexion (C7) 5 Normal Extension (C6) 5 Normal Ulnar Deviation 5 Normal Radial Deviation 5 Normal Hand Cutter Brake Lining/Pinch Strength Hand Dominance Hand Dominance Right Hand Strength Right Cutter Brake Lining (lbs) 80 Comments Three-trial average (80, 80, 80) Left Cutter Brake Lining (lbs) 90 Comments Three-trial average (100, 80, 90) PT-OP-Q Treatments Start: 09/20/24 16:05 Freq: Status: Active Protocol: Document 10/21/24 17:00 DCW (Rec: 10/21/24 17:39 DCW [id number]) Therapeutic Exercises Sitting Exercises Flexbar Sitting Exercise Name Flexbar - Pro/Sup, Twist, Circles Side bilateral Resistance Green Manual Therapy Treatment Consent Patient gave verbal consent for manual Yes treatment Soft Tissue Mobilization Forearm Body Location R common extensor tendon Mobilization Type Cross-Friction,Sustained Pressure,Other Intensity/Depth Moderate Body Position Sitting PT-OP-T Assessment and Plan Start: 09/20/24 16:05 Freq: Status: Active Protocol: Document 10/21/24 17:00 DCW (Rec: 10/21/24 17:39 DCW [id number]) Physical Therapy Assessment Impairments Impairments Pain,Soft Tissue Mobility, Strength Goals Three Impairment Tenderness to palpation of right common extensor tendon Water Attendant Goal (LTG) Pt to demonstrate improvement of tone and tenderness of right forearm to WNL in order to return to normal home activities. LTG Duration Met Two Impairment Pt exhibits mild weakness with right buffing turner and counter (80# R vs 90# L) Penitentiary Goal (LTG) Pt to improve right buffing turner and counter strength to >90# in order to improve ability to open jars LTG Duration Met One Impairment Pt does not have an appropriate home exercise program Short Term Goal (STG) Pt to be independent and compliant with an appropriate HEP STG Duration Met Assessment Summary Assessment Pt doing very well, largely asymptomatic at this time. Pt has met all goals, agreeable to discharge from skilled PT at this time. Physical Therapy Plan Frequency and Duration Frequency of Treatment 2x/Week Plan of Care Start Date 09/20/24 Plan of Care End Date 11/20/24 Therapeutic Interventions Therapeutic Interventions Home Exercise Program,Joint Mobilizations,Manual Therapy, Neuromuscular Re-education, Patient/Caregiver Education, Self-Care/Home Management,Soft Tissue Mobilization, Therapeutic Activities, Therapeutic Exercises Modalities Cold Pack/Ice Massage,Electric Stimulation,Hot Packs, Ultrasound Discharge Physical Therapy Discharge Reasons Goals Met Next Visit Focus/Plan Next Note Type Discharge Summary
== END 2024-10-22 13:51 | disposition home or self-care (01) ==
LOC: PHYS 17:00
PROVIDERS: Family Provider Family Medicine; PCP Family Medicine; Referring Provider Family Medicine; Visit Provider Family Medicine
DX: S49.91XD Unspecified injury of right shoulder and upper arm, subsequent encounter (principal); M54.9 Dorsalgia, unspecified; M77.11 Lateral epicondylitis, right elbow; S49.91XA Unspecified injury of right shoulder and upper arm, initial encounter
CPT/HCPCS: 97110; 97140; 97161; 97530; 97535

== ENCOUNTER 2025-02-21 13:45 | Outpatient (RCR) | payer OTHER, SELFPAY ==
--- NOTE | 2024-11-30 17:53 | PT.OIE ---
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) Past Medical History (Last Updated 10/14/24 @ 12:07 by Tonia Tate MD) Acute cognitive decline Atrial fib/flutter, transient Barretts esophagus Cervical disc disease Fatigue Forearm pain Hyperlipidemia Hypertension Paresthesias Renal mass, right Seborrheic keratosis Visit Care Team Role Provider Type Tonia Ttae MD Family Provider Physician Primary Care Provider Specialty: Family Practice CONSUMER SALES REPRESENTATIVE Address: [address] [place] [address] Fax: Email: [email or web address] Holli Jung MD Attending Provider Non-Staff Referring Provider Specialty: Physical Medicine and Rehab Address: [address] [place] [address], [address], [facility] Email: Physical Therapy Initial Evaluation PT-OP-A Visit Information Start: 11/29/24 12:13 Freq: Status: Active Protocol: Document 11/30/24 11:34 GG (Rec: 11/30/24 13:00 GG [id number]) Out-Patient Physical Therapy Visit Information Visit Information Visit Type Initial Evaluation Visit Start Time 11:50 Visit Stop Time 12:20 Visit Number 1 Number of FUND MANAGER Visits 0 PT-OP-B Current Condition Start: 11/29/24 12:13 Freq: Status: Active Protocol: Document 11/30/24 11:34 GG (Rec: 11/30/24 13:00 GG [id number]) Current Condition History of Current Condition Onset Date 2 years ago Current Complaints post-COVID/deconditioning History of Current Pt reports having had two bouts of COVID. Has done Condition vaccines and boosters. Noted reaction to Paxlovid. Major complaint is that he can't get his HR up like he could prior to COVID, as well as other signs/symptoms including: a-fib, HTN, dizziness, brain fog, GI issues following activity, worse sleep. 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 Prior, had a gym routine and worked out regularly, prefers the structure w/ a routine. Currently, has bought a rowing machine but hasn't used it yet and walks about 2 hours, is active around the house, but does not feel like that is doing much. Other medical hx that had been occurring prior to COVID includes, DDD that can disrupt sleep if not in proper position, memory loss. Sleeps w/ cervical pillow and notes general reduced ROM in neck. Can wake up w/ numbness and tingling if he sleeps wrong and notes that he does not sleep well anyway, wears a rn night d/t minor grinding. Has not gotten sleep study done, but notes no snoring. Notes memory loss that had started prior to COVID, has had study done at [facility] but results not back yet. Enjoys reading and notes that it is difficult to remember lots of different names and appt times. Brain scan done, showing shrinking hippocampus. Hx of falls: tripped over object in April and scrapped up shoulders and head. Comments about general arthritis and achy joints that can fluctuate in pain and can limit from him from activities. vitals: pre-testing: BP 127/72 HR 56 post-testing: BP 151/64 HR 68 Treatment Goals Patient/Caregiver household activities w/o pain, picking something off Goals floor, heavy lifting, regimented exercise plan, able to do activities more days/week w/o symptoms PT-OP-E Functional Tests Start: 11/29/24 12:13 Freq: Status: Active Protocol: Document 11/30/24 11:34 GG (Rec: 11/30/24 13:00 GG [id number]) Functional Tests 6 Minute Walk Test Distance 1819ft 30 Second Sit to Stand Test Score 17 Functional Gait Assessment Score 28 PT-OP-Q Treatments Start: 11/29/24 12:13 Freq: Status: Active Protocol: Document 11/30/24 11:34 GG (Rec: 11/30/24 17:54 GG [id number]) Self-Care/Home Management Treatment Education Other Education 10 min: pt ed regarding test results and at age- appropriate levels of function, but GI symptoms w/ walking is abnormal. ed regarding scoring out of testing d/t his higher activity level. impact of COVID on vagus n. and how manual therapy and breathing can improve symptoms. PT-OP-T Assessment and Plan Start: 11/29/24 12:13 Freq: Status: Active Protocol: Document 11/30/24 11:34 GG (Rec: 11/30/24 13:00 GG [id number]) Physical Therapy Assessment Rehab Potential Rehabilitation Good Potential Evaluation Complexity Number of Personal 3 or More Factors/ Comorbidities Number of Body 3 Systems Impaired Clinical Evolving Presentation at Evaluation Impairments Impairments Activity Tolerance,Balance,Coordination,Functional Activities,Functional Mobility,Gait,Pain,Strength Goals lifting Short Term Goal (STG Pt will be able to lift at 25# from ground to ) demonstrate proper mechanics and improved ability to perform household activities. STG Duration 12/31/24 Buckler And Lacer Goal (LTG) Pt will be able to lift at 50# from ground to demonstrate proper mechanics and improved ability to perform household activities. LTG Duration 01/25/25 activity Custodial Goal (LTG) Pt will be able to perform activities at least 6 days per week to demonstrate better tolerance to activity and reduced impact on activity d/t pain. LTG Duration 01/25/25 Assessment Summary Assessment Eladio presents to PT following multiple bouts of COVID and c/o deconditioning d/t being sick. Pt is overall very active and scored well on initial functional testing, but has lingering symptoms that impact his ability to perform his ADLs. Pt will benefit from PT to build a HEP that he can follow to improve overall endurance and functional mobility. Physical Therapy Plan Frequency and Duration Frequency of 2x/Week Treatment Duration of 8 treatment (weeks) Plan of Care Start 11/30/24 Date Plan of Care End 01/25/25 Date Therapeutic Interventions Therapeutic Balance Training,Coordination Training,Gait Training, Interventions Home Exercise Program,Joint Mobilizations,Manual Therapy,Neuromuscular Re-education,Patient/Caregiver Education,Self-Care/Home Management,Therapeutic Activities,Therapeutic Exercises Next Visit Focus/Plan Next Note Type Treatment Note Next Visit Plan Cont testing strength/balance, explore symptoms more especially vital sign response to exercise; HEP: SL exercises, power/speed (squats), coordination/agility modify exercise based on symptoms (GI, BP/HR response), manual for vagus n., thoracic cage (manual and exercise for HEP)
--- NOTE | 2024-12-07 12:18 | PT.OTN ---
Current Diagnoses Post COVID-19 condition, unspecified (12/07/24) Physical Therapy Treatment Note PT-OP-A Visit Information Start: 11/29/24 12:13 Freq: Status: Active Protocol: Document 12/07/24 11:38 SP (Rec: 12/07/24 12:39 SP [id number]) Out-Patient Physical Therapy Visit Information Visit Information Visit Type Treatment Note Visit Start Time 11:38 Visit Stop Time 12:18 Visit Number 2 Number of RELISH MAKER Visits 1 Precautions Precautions States has history of GERD. PT-OP-B Current Condition Start: 11/29/24 12:13 Freq: Status: Active Protocol: Document 11/30/24 11:34 GG (Rec: 11/30/24 13:00 GG [id number]) Current Condition History of Current Condition Onset Date 2 years ago Current Complaints post-COVID/deconditioning History of Current Pt reports having had two bouts of COVID. Has done Condition vaccines and boosters. Noted reaction to Paxlovid. Major complaint is that he can't get his HR up like he could prior to COVID, as well as other signs/symptoms including: a-fib, HTN, dizziness, brain fog, GI issues following activity, worse sleep. 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 Prior, had a gym routine and worked out regularly, prefers the structure w/ a routine. Currently, has bought a rowing machine but hasn't used it yet and walks about 2 hours, is active around the house, but does not feel like that is doing much. Other medical hx that had been occurring prior to COVID includes, DDD that can disrupt sleep if not in proper position, memory loss. Sleeps w/ cervical pillow and notes general reduced ROM in neck. Can wake up w/ numbness and tingling if he sleeps wrong and notes that he does not sleep well anyway, wears a underground bolting machine operator d/t minor grinding. Has not gotten sleep study done, but notes no snoring. Notes memory loss that had started prior to COVID, has had study done at [facility] but results not back yet. Enjoys reading and notes that it is difficult to remember lots of different names and appt times. Brain scan done, showing shrinking hippocampus. Hx of falls: tripped over object in April and scrapped up shoulders and head. Comments about general arthritis and achy joints that can fluctuate in pain and can limit from him from activities. vitals: pre-testing: BP 127/72 HR 56 post-testing: BP 151/64 HR 68 Treatment Goals Patient/Caregiver household activities w/o pain, picking something off Goals floor, heavy lifting, regimented exercise plan, able to do activities more days/week w/o symptoms PT-OP-C Subjective Start: 11/29/24 12:13 Freq: Status: Active Protocol: Document 12/07/24 11:38 SP (Rec: 12/07/24 12:39 SP [id number]) OP-PT Subjective Patient Comments Patient Comments He reports feeling off today, little dizzy feeling at arrival: Song BP arrival: 155/ 80 HR 59. He reports has been little nausea lately but not bad. Hasn't been doing BP check due to BP has been better. PT-OP-E Functional Tests Start: 11/29/24 12:13 Freq: Status: Active Protocol: Document 11/30/24 11:34 GG (Rec: 11/30/24 13:00 GG [id number]) Functional Tests 6 Minute Walk Test Distance 1819ft 30 Second Sit to Stand Test Score 17 Functional Gait Assessment Score 28 PT-OP-Q Treatments Start: 11/29/24 12:13 Freq: Status: Active Protocol: Document 12/07/24 11:38 SP (Rec: 12/07/24 12:39 SP [id number]) Cardio Equipment Recumbent Bicycle Duration (Minutes) 2 Resistance 4 Seat Position in 6 Other 66 RPMs- stopped not feel well: Gym Equipment Shuttle Recovery SL squats Details future Bilateral Squats Details future Therapeutic Ball core Exercise Details KTC #4 TB, bridging Ball Size/Color 55cm tball Body Position Hooklying Reps/Duration 2x10 reps each Therapeutic Exercises Supine Exercises Diaphramatic Breath Supine Exercise Name positional release: hooklying wedge under upper body and BLEs Reps/Minutes slow in out 5 reps resisted KFO Supine Exercise Name trialed in PT- single leg Side bilateral Resistance TB #4 dark blue Reps/Minutes 2x10 each LE Comments cued slow pacing con/ecc Neuro Re-Education Treatment Balance Activities SLS wt cone taps Details trialed in PT Surface floor Equipment 4# leg wts, //bars Reps/Duration 3 min Comments cued slow/light tap up/down, more challenging SLS time on R during LLE movement. foam Details tandem Equipment //bars Reps/Duration 60 sec Comments stationary: R ft fwd 60 sec, Lft fwd 5 sec then 30 sec HTs: challenging LOB to R or L Self-Care/Home Management Treatment Education Patient Education Safety Other Education BP check throughout tx for safety activity. see values in activity. Discussed return to BP checks. PT-OP-T Assessment and Plan Start: 11/29/24 12:13 Freq: Status: Active Protocol: Document 12/07/24 11:38 SP (Rec: 12/07/24 12:39 SP [id number]) Physical Therapy Assessment Goals lifting Short Term Goal (STG Pt will be able to lift at 25# from ground to ) demonstrate proper mechanics and improved ability to perform household activities. STG Duration 12/31/24 Assisted Goal (LTG) Pt will be able to lift at 50# from ground to demonstrate proper mechanics and improved ability to perform household activities. LTG Duration 01/25/25 activity Coal Pulverizing Operator Goal (LTG) Pt will be able to perform activities at least 6 days per week to demonstrate better tolerance to activity and reduced impact on activity d/t pain. LTG Duration 01/25/25 Assessment Summary Assessment Pt had increased nausea and not feeling well 2 min into recumbent bike so stopped (L UE automated: Seated 2 min cardio recumbent bike 157/84 HR 70). Changed activity to more hooklying for safety and recovery positional release support, BP 167/77 HR 65 breath, diaphramatic breath then supine ther ex 146/84 improvement. Standing and walk across gym reported dizzy: 130/86 HR 72. Improved diminished nausea with standing balance activities end tx. Cues for elongated posture with core and postural facilitation over stance LE helped him improve midline stability against LE resistance. Did not add HEP this tx, would benefit from progress as responds well to for carryover home future tx. Discussed with pt go return to BP checks for problem solving dizziness and nausea. Physical Therapy Plan Frequency and Duration Frequency of 2x/Week Treatment Duration of 8 treatment (weeks) Plan of Care Start 11/30/24 Date Plan of Care End 01/25/25 Date Therapeutic Interventions Therapeutic Balance Training,Coordination Training,Gait Training, Interventions Home Exercise Program,Joint Mobilizations,Manual Therapy,Neuromuscular Re-education,Patient/Caregiver Education,Self-Care/Home Management,Therapeutic Activities,Therapeutic Exercises Next Visit Focus/Plan Next Note Type Treatment Note Next Visit Plan Cont vital check and symptomatic response to cardio activity. POC: continue testing strength/balance; HEP: SL exercises, power/speed (squats), coordination/agility modify exercise based on symptoms (GI, BP/HR response), manual for vagus n., thoracic cage (manual and exercise for HEP)
--- NOTE | 2024-12-15 16:22 | PT-OP ANOTE ---
Pt cancelled 2nd consecutive appt, no reason given. PERSONAL PROPERTY APPRAISER called left message concerned and hoping he's doing ok and if anything we can do help. Reminded next appt 12/22 at 1130.
--- NOTE | 2024-12-22 12:14 | PT.OTN ---
Current Diagnoses Post COVID-19 condition, unspecified (12/22/24) Physical Therapy Treatment Note PT-OP-A Visit Information Start: 11/29/24 12:13 Freq: Status: Active Protocol: Document 12/22/24 11:34 SP (Rec: 12/22/24 11:43 SP [id number]) Out-Patient Physical Therapy Visit Information Visit Information Visit Type Treatment Note Visit Start Time 11:34 Visit Stop Time 12:14 Visit Number 3 Number of POSTAL CLERK Visits 2 Precautions Precautions States has history of GERD. PT-OP-B Current Condition Start: 11/29/24 12:13 Freq: Status: Active Protocol: Document 11/30/24 11:34 GG (Rec: 11/30/24 13:00 GG [id number]) Current Condition History of Current Condition Onset Date 2 years ago Current Complaints post-COVID/deconditioning History of Current Pt reports having had two bouts of COVID. Has done Condition vaccines and boosters. Noted reaction to Paxlovid. Major complaint is that he can't get his HR up like he could prior to COVID, as well as other signs/symptoms including: a-fib, HTN, dizziness, brain fog, GI issues following activity, worse sleep. 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 Prior, had a gym routine and worked out regularly, prefers the structure w/ a routine. Currently, has bought a rowing machine but hasn't used it yet and walks about 2 hours, is active around the house, but does not feel like that is doing much. Other medical hx that had been occurring prior to COVID includes, DDD that can disrupt sleep if not in proper position, memory loss. Sleeps w/ cervical pillow and notes general reduced ROM in neck. Can wake up w/ numbness and tingling if he sleeps wrong and notes that he does not sleep well anyway, wears a private security guard d/t minor grinding. Has not gotten sleep study done, but notes no snoring. Notes memory loss that had started prior to COVID, has had study done at [place] but results not back yet. Enjoys reading and notes that it is difficult to remember lots of different names and appt times. Brain scan done, showing shrinking hippocampus. Hx of falls: tripped over object in April and scrapped up shoulders and head. Comments about general arthritis and achy joints that can fluctuate in pain and can limit from him from activities. vitals: pre-testing: BP 127/72 HR 56 post-testing: BP 151/64 HR 68 Treatment Goals Patient/Caregiver household activities w/o pain, picking something off Goals floor, heavy lifting, regimented exercise plan, able to do activities more days/week w/o symptoms PT-OP-C Subjective Start: 11/29/24 12:13 Freq: Status: Active Protocol: Document 12/22/24 11:34 SP (Rec: 12/22/24 11:43 SP [id number]) OP-PT Subjective Patient Comments Patient Comments Pt has been traveling, [place] recently. Still has some bad spells especially with heat, in cool house good. His gut is been having issues and thinks is contributor . Vitals LUE this am 840 130/ 69 HR 65. Vitals arrival LUE Automated BP: 128/69 HR 54 LUE 191/80 hr 94, 1.5 min rest/breath recovery 158/78 HR 72 PT-OP-E Functional Tests Start: 11/29/24 12:13 Freq: Status: Active Protocol: Document 11/30/24 11:34 GG (Rec: 11/30/24 13:00 GG [id number]) Functional Tests 6 Minute Walk Test Distance 1819ft 30 Second Sit to Stand Test Score 17 Functional Gait Assessment Score 28 PT-OP-Q Treatments Start: 11/29/24 12:13 Freq: Status: Active Protocol: Document 12/22/24 11:34 SP (Rec: 12/22/24 11:43 SP [id number]) Cardio Equipment Recumbent Bicycle Duration (Minutes) 4 Resistance 7 Seat Position in 5 Other 69 RPMs- little belching feeling-mSOB Therapeutic Exercises Standing Exercises Resisted hip abduction & extension Standing Exercise trialed in PT Name Side bilateral Resistance 4# leg wt Equipment Used near rail but not touching Reps/Minutes 10 each Ankur Comments cued tall over stance LE, moving LE TKE and DF neutral ft clearance DF toe Standing Exercise warm up Name Side bilateral Resistance 4# leg wt Equipment Used back to ail Reps/Minutes 15 reps Heel raises Standing Exercise warm up Name Side bilateral Resistance 4# leg wt Reps/Minutes 15 reps Neuro Re-Education Treatment Balance Activities Balance Beam Details forward and backward Surface large beam- assimulation walking over down tree out in wooded trails Equipment gait belt Reps/Duration 2 laps each direction Comments very challenging initially Min A>CGA support- improved midline stability with intermittent cues elongated posture over stance LE, parascapular mm engagement and TA Uneven Obstacle course Details forward and lateral- assimulate beach/trail navigation Surface 2 mats over: pods/foam/2 discs/ 2- 1/2 foam rollers then added 4 hurdles Equipment gait belt Reps/Duration many laps Comments cues for midline stability CG-5%A as needed (2)- R toe caught michelle x1 self recovery SLS wt cone taps Details trialed in PT Surface floor Equipment 4# leg wts, //bars Reps/Duration 3 min Comments cued slow/light tap up/down, more challenging SLS time on R during LLE movement. Improved stability with cues elongated posture over stance LE, parascapular mm engagement and TA Self-Care/Home Management Treatment Education Patient Education Safety Other Education His BP log checking for safety activity WNL seated resting. Discussed can keep log if wants for self awareness and assess with activity if feeling SOB for safety awareness and keep physician abreast of values for safety due to continued BP hypertensive with cardio equipment and lowered with standing activity but not fully to resting range. PT-OP-T Assessment and Plan Start: 11/29/24 12:13 Freq: Status: Active Protocol: Document 12/22/24 11:34 SP (Rec: 12/22/24 11:43 SP [id number]) Physical Therapy Assessment Goals lifting Short Term Goal (STG Pt will be able to lift at 25# from ground to ) demonstrate proper mechanics and improved ability to perform household activities. STG Duration 12/31/24 Company Laundry Worker Goal (LTG) Pt will be able to lift at 50# from ground to demonstrate proper mechanics and improved ability to perform household activities. LTG Duration 01/25/25 activity [facility] Goal (LTG) Pt will be able to perform activities at least 6 days per week to demonstrate better tolerance to activity and reduced impact on activity d/t pain. 12/22/24: cut grass, fixed up shop, watered plants - no pain. LTG Duration 01/25/25 Assessment Summary Assessment Pt continued BP hypertensive with SOB during recumbent bike cardio equipment and demonstrated SOB, decreased during activity with no SOB. Continued education log for safety if needed especially with activity SOB and feeling not up to par and let Dr know. Good progression with resisted LE ex and balance activities today for return to uneven outside community gait, improves stability with cuing for postural corrections and core engagement over stance LE. Next tx asssess goal progress lifting and activity tolerance details. Physical Therapy Plan Frequency and Duration Frequency of 2x/Week Treatment Duration of 8 treatment (weeks) Plan of Care Start 11/30/24 Date Plan of Care End 01/25/25 Date Therapeutic Interventions Therapeutic Balance Training,Coordination Training,Gait Training, Interventions Home Exercise Program,Joint Mobilizations,Manual Therapy,Neuromuscular Re-education,Patient/Caregiver Education,Self-Care/Home Management,Therapeutic Activities,Therapeutic Exercises Next Visit Focus/Plan Next Note Type Treatment Note Next Visit Plan Cont vital check and symptomatic response to cardio activity. recheck response to bal activities last tx. progress SL and lifting for safety yard work. POC: continue testing strength/balance; HEP: SL exercises, power/speed (squats), coordination/agility modify exercise based on symptoms (GI, BP/HR response), manual for vagus n., thoracic cage (manual and exercise for HEP)
--- NOTE | 2024-12-28 15:23 | PT.OTN ---
Current Diagnoses Post COVID-19 condition, unspecified (12/28/24) Physical Therapy Treatment Note PT-OP-A Visit Information Start: 11/29/24 12:13 Freq: Status: Active Protocol: Document 12/28/24 14:36 LR (Rec: 12/28/24 15:23 [facility] [id number]) Out-Patient Physical Therapy Visit Information Visit Information Visit Type Treatment Note Visit Start Time 14:36 Visit Stop Time 15:15 Visit Number 4 Number of SURFACE WATER TECHNICIAN Visits 0 Precautions Precautions States has history of GERD. PT-OP-B Current Condition Start: 11/29/24 12:13 Freq: Status: Active Protocol: Document 11/30/24 11:34 GG (Rec: 11/30/24 13:00 GG [id number]) Current Condition History of Current Condition Onset Date 2 years ago Current Complaints post-COVID/deconditioning History of Current Pt reports having had two bouts of COVID. Has done Condition vaccines and boosters. Noted reaction to Paxlovid. Major complaint is that he can't get his HR up like he could prior to COVID, as well as other signs/symptoms including: a-fib, HTN, dizziness, brain fog, GI issues following activity, worse sleep. 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 Prior, had a gym routine and worked out regularly, prefers the structure w/ a routine. Currently, has bought a rowing machine but hasn't used it yet and walks about 2 hours, is active around the house, but does not feel like that is doing much. Other medical hx that had been occurring prior to COVID includes, DDD that can disrupt sleep if not in proper position, memory loss. Sleeps w/ cervical pillow and notes general reduced ROM in neck. Can wake up w/ numbness and tingling if he sleeps wrong and notes that he does not sleep well anyway, wears a private security guard d/t minor grinding. Has not gotten sleep study done, but notes no snoring. Notes memory loss that had started prior to COVID, has had study done at [place] but results not back yet. Enjoys reading and notes that it is difficult to remember lots of different names and appt times. Brain scan done, showing shrinking hippocampus. Hx of falls: tripped over object in April and scrapped up shoulders and head. Comments about general arthritis and achy joints that can fluctuate in pain and can limit from him from activities. vitals: pre-testing: BP 127/72 HR 56 post-testing: BP 151/64 HR 68 Treatment Goals Patient/Caregiver household activities w/o pain, picking something off Goals floor, heavy lifting, regimented exercise plan, able to do activities more days/week w/o symptoms PT-OP-C Subjective Start: 11/29/24 12:13 Freq: Status: Active Protocol: Document 12/28/24 14:36 [facility] (Rec: 12/28/24 15:23 [facility] [id number]) OP-PT Subjective Patient Comments Patient Comments Back is a little sore from sitting reading. notes it has been disturbing that he was challenged by the bike PT-OP-E Functional Tests Start: 11/29/24 12:13 Freq: Status: Active Protocol: Document 11/30/24 11:34 GG (Rec: 11/30/24 13:00 GG [id number]) Functional Tests 6 Minute Walk Test Distance 1819ft 30 Second Sit to Stand Test Score 17 Functional Gait Assessment Score 28 PT-OP-Q Treatments Start: 11/29/24 12:13 Freq: Status: Active Protocol: Document 12/28/24 14:36 [facility] (Rec: 12/28/24 15:23 [facility] [id number]) Therapeutic Exercises Supine Exercises foam roll Supine Exercise Name UE flex, abd, Habd Resistance foam roll and pillow under head Reps/Minutes 12 ea Diaphramatic Breath Reps/Minutes 12x Comments cues to breath lat into ribcage Sidelying Exercises open book Side bilateral Reps/Minutes 12 Comments cues no rolling and knees bent up Standing Exercises lunge Standing Exercise walking cues depth Name Side bilateral Reps/Minutes 6x15ft squat Side bilateral Equipment Used 2nd set 10lb Reps/Minutes 2x10 Comments cues feet and knee position Manual Therapy Treatment Consent Patient gave verbal Yes consent for manual treatment Soft Tissue Mobilization abdomen Comments 1. fascia around liver OSFM 2. R triangular ligament OSFm Joint Mobilizations ribs Comments external torsion L rib 5 and 7 c/r thoracic Comments transverse T6 and 8 R and transverse rib 9-10 L c/r PT-OP-T Assessment and Plan Start: 11/29/24 12:13 Freq: Status: Active Protocol: Document 12/28/24 14:36 [facility] (Rec: 12/28/24 15:23 [facility] [id number]) Physical Therapy Assessment Goals lifting Short Term Goal (STG Pt will be able to lift at 25# from ground to ) demonstrate proper mechanics and improved ability to perform household activities. 12/28-able to do squats w/10lbs STG Duration 12/31/24 Intermediate Goal (LTG) Pt will be able to lift at 50# from ground to demonstrate proper mechanics and improved ability to perform household activities. LTG Duration 01/25/25 activity Intermediate Goal (LTG) Pt will be able to perform activities at least 6 days per week to demonstrate better tolerance to activity and reduced impact on activity d/t pain. 12/22/24: cut grass, fixed up shop, watered plants - no pain. 12/28-depends on the day LTG Duration 01/25/25 Assessment Summary Assessment much improved thoracic rotation B after manual cre today. he cont to have significant thoracic and visceral restriction likely relating to symptoms. Physical Therapy Plan Frequency and Duration Frequency of 2x/Week Treatment Duration of 8 treatment (weeks) Plan of Care Start 11/30/24 Date Plan of Care End 01/25/25 Date Next Visit Focus/Plan Next Note Type Treatment Note Next Visit Plan Cont vital check and symptomatic response to cardio activity. recheck response to bal activities last tx. progress SL and lifting for safety yard work. POC: continue testing strength/balance; HEP: SL exercises, power/speed (squats), coordination/agility modify exercise based on symptoms (GI, BP/HR response), manual for vagus n., thoracic cage (manual and exercise for HEP)
--- NOTE | 2024-12-30 15:50 | PT.OTN ---
Current Diagnoses Post COVID-19 condition, unspecified (12/30/24) Physical Therapy Treatment Note PT-OP-A Visit Information Start: 11/29/24 12:13 Freq: Status: Active Protocol: Document 12/30/24 13:01 [facility] (Rec: 12/30/24 15:50 [facility] [id number]) Out-Patient Physical Therapy Visit Information Visit Information Visit Type Treatment Note Visit Note TRAFFIC LIEUTENANT Jael did 15 min of treatment while PT worked with another pt Visit Start Time 13:05 Visit Stop Time 13:45 Visit Number 5 Number of TRAFFIC LIEUTENANT Visits 0 PT-OP-B Current Condition Start: 11/29/24 12:13 Freq: Status: Active Protocol: Document 11/30/24 11:34 GG (Rec: 11/30/24 13:00 GG [id number]) Current Condition History of Current Condition Onset Date 2 years ago Current Complaints post-COVID/deconditioning History of Current Pt reports having had two bouts of COVID. Has done Condition vaccines and boosters. Noted reaction to Paxlovid. Major complaint is that he can't get his HR up like he could prior to COVID, as well as other signs/symptoms including: a-fib, HTN, dizziness, brain fog, GI issues following activity, worse sleep. 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 Prior, had a gym routine and worked out regularly, prefers the structure w/ a routine. Currently, has bought a rowing machine but hasn't used it yet and walks about 2 hours, is active around the house, but does not feel like that is doing much. Other medical hx that had been occurring prior to COVID includes, DDD that can disrupt sleep if not in proper position, memory loss. Sleeps w/ cervical pillow and notes general reduced ROM in neck. Can wake up w/ numbness and tingling if he sleeps wrong and notes that he does not sleep well anyway, wears a guard lieutenant d/t minor grinding. Has not gotten sleep study done, but notes no snoring. Notes memory loss that had started prior to COVID, has had study done at [place] but results not back yet. Enjoys reading and notes that it is difficult to remember lots of different names and appt times. Brain scan done, showing shrinking hippocampus. Hx of falls: tripped over object in April and scrapped up shoulders and head. Comments about general arthritis and achy joints that can fluctuate in pain and can limit from him from activities. vitals: pre-testing: BP 127/72 HR 56 post-testing: BP 151/64 HR 68 Treatment Goals Patient/Caregiver household activities w/o pain, picking something off Goals floor, heavy lifting, regimented exercise plan, able to do activities more days/week w/o symptoms PT-OP-C Subjective Start: 11/29/24 12:13 Freq: Status: Active Protocol: Document 12/30/24 13:01 [facility] (Rec: 12/30/24 15:50 [facility] [id number]) OP-PT Subjective Patient Comments Patient Comments Mayetta good after last session. compliant with exercises PT-OP-E Functional Tests Start: 11/29/24 12:13 Freq: Status: Active Protocol: Document 11/30/24 11:34 GG (Rec: 11/30/24 13:00 GG [id number]) Functional Tests 6 Minute Walk Test Distance 1819ft 30 Second Sit to Stand Test Score 17 Functional Gait Assessment Score 28 PT-OP-Q Treatments Start: 11/29/24 12:13 Freq: Status: Active Protocol: Document 12/30/24 13:01 [facility] (Rec: 12/30/24 15:50 [facility] [id number]) Therapeutic Exercises Supine Exercises Diaphramatic Breath Reps/Minutes 5x Comments cues to breath lat into ribcage lower and into abdomen Sidelying Exercises open book Side bilateral Reps/Minutes 8 Comments cues no rolling and knees bent up Standing Exercises sit to stand Standing Exercise to mat Name Side bilateral Reps/Minutes 10 Comments cues eccentric lower-w/TRAFFIC LIEUTENANT lunge Standing Exercise stationary Name Side bilateral Reps/Minutes 10 ea Comments max cues for positioning- w/TRAFFIC LIEUTENANT squat Side bilateral Reps/Minutes 2x10 Comments cues feet and knee position-dec pain after sit to stand -w/TRAFFIC LIEUTENANT Other Exercises luis pose Reps/Minutes 1 min Comments w/deep breaths Manual Therapy Treatment Consent Patient gave verbal Yes consent for manual treatment Soft Tissue Mobilization cervical Comments along L cervical spine SCM, scalenes w/rot and along vagus n gently Self-Care/Home Management Treatment Education Other Education 5 min w/TRAFFIC LIEUTENANT Jael: edu on energy pacing, body mechanics w/ADLS and given HO on do/don'ts with typical household taks, edu painfree stretching and breath for parasympathetic NS activation PT-OP-T Assessment and Plan Start: 11/29/24 12:13 Freq: Status: Active Protocol: Document 12/30/24 13:01 [facility] (Rec: 12/30/24 15:50 [facility] [id number]) Physical Therapy Assessment Goals lifting Short Term Goal (STG Pt will be able to lift at 25# from ground to ) demonstrate proper mechanics and improved ability to perform household activities. 12/28-able to do squats w/10lbs STG Duration 12/31/24 Carpet Installer Helper Goal (LTG) Pt will be able to lift at 50# from ground to demonstrate proper mechanics and improved ability to perform household activities. LTG Duration 01/25/25 activity Carpet Installer Helper Goal (LTG) Pt will be able to perform activities at least 6 days per week to demonstrate better tolerance to activity and reduced impact on activity d/t pain. 12/22/24: cut grass, fixed up shop, watered plants - no pain. 12/28-depends on the day LTG Duration 01/25/25 Assessment Summary Assessment Pt did well with exercises w/dec pain when cued for dec range and working on form. Inc cues still needed w/ lunges and squats. Physical Therapy Plan Frequency and Duration Frequency of 2x/Week Treatment Duration of 8 treatment (weeks) Plan of Care Start 11/30/24 Date Plan of Care End 01/25/25 Date Next Visit Focus/Plan Next Note Type Treatment Note Next Visit Plan Cont vital check and symptomatic response to cardio activity. recheck response to bal activities last tx. progress SL and lifting for safety yard work. POC: continue testing strength/balance; HEP: SL exercises, power/speed (squats), coordination/agility modify exercise based on symptoms (GI, BP/HR response), manual for vagus n., thoracic cage (manual and exercise for HEP)
--- NOTE | 2025-01-04 13:48 | PT.OTN ---
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 [id number]) Out-Patient Physical Therapy Visit Information Visit Information Visit Type Progress Note Visit Start Time 13:05 Visit Stop Time 13:45 Visit Number 6 Number of HOME LIGHTING ADVISER Visits 0 PT-OP-B Current Condition Start: 11/29/24 12:13 Freq: Status: Active Protocol: Document 11/30/24 11:34 GG (Rec: 11/30/24 13:00 GG [id number]) Current Condition History of Current Condition Onset Date 2 years ago Current Complaints post-COVID/deconditioning History of Current Pt reports having had two bouts of COVID. Has done Condition vaccines and boosters. Noted reaction to Paxlovid. Major complaint is that he can't get his HR up like he could prior to COVID, as well as other signs/symptoms including: a-fib, HTN, dizziness, brain fog, GI issues following activity, worse sleep. 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 Prior, had a gym routine and worked out regularly, prefers the structure w/ a routine. Currently, has bought a rowing machine but hasn't used it yet and walks about 2 hours, is active around the house, but does not feel like that is doing much. Other medical hx that had been occurring prior to COVID includes, DDD that can disrupt sleep if not in proper position, memory loss. Sleeps w/ cervical pillow and notes general reduced ROM in neck. 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 Has not gotten sleep study done, but notes no snoring. Notes memory loss that had started prior to COVID, has had study done at [place] but results not back yet. Enjoys reading and notes that it is difficult to remember lots of different names and appt times. Brain scan done, showing shrinking hippocampus. Hx of falls: tripped over object in April and scrapped up shoulders and head. Comments about general arthritis and achy joints that can fluctuate in pain and can limit from him from activities. vitals: pre-testing: BP 127/72 HR 56 post-testing: BP 151/64 HR 68 Treatment Goals Patient/Caregiver household activities w/o pain, picking something off Goals floor, heavy lifting, regimented exercise plan, able to do activities more days/week w/o symptoms PT-OP-C Subjective Start: 11/29/24 12:13 Freq: Status: Active Protocol: Document 01/04/25 13:03 [facility] (Rec: 01/04/25 13:48 [facility] [id number]) OP-PT Subjective Patient Comments Patient Comments squats w/wt irritate back a little PT-OP-E Functional Tests Start: 11/29/24 12:13 Freq: Status: Active Protocol: Document 11/30/24 11:34 GG (Rec: 11/30/24 13:00 GG [id number]) Functional Tests 6 Minute Walk Test Distance 1819ft 30 Second Sit to Stand Test Score 17 Functional Gait Assessment Score 28 PT-OP-Q Treatments Start: 11/29/24 12:13 Freq: Status: Active Protocol: Document 01/04/25 13:03 [facility] (Rec: 01/04/25 13:48 [facility] [id number]) Therapeutic Exercises Supine Exercises foam roll Supine Exercise Name UE flex, abd, Habd, gentle rock side to side Resistance foam roll and pillow under head Reps/Minutes 12 ea Standing Exercises paloff press Side bilateral Resistance 2 lvl 2 band Reps/Minutes 15 ea lunge Standing Exercise walking cues depth Name Side bilateral Reps/Minutes 2x20ft, 2x50ft Comments cues hip hinge and back knee bent squat Side bilateral Equipment Used 10lb Reps/Minutes 2x10 Comments cues wt closer Manual Therapy Treatment Consent Patient gave verbal Yes consent for manual treatment Soft Tissue Mobilization cervical Body Position Sitting Comments paraspinals and ligament flavum w/flex abdomen Comments 1. fascia superior to stomach w/ext and R rot 2. coronary ligament Joint Mobilizations thoracic Comments PA T8-10 seated c/r; T 5 PA seated c/r Neuro Re-Education Treatment Balance Activities bosu Comments 1. fwd step up to SLS x12 B 2. side step up then over x12 B 3. squat blue side x10 PT-OP-T Assessment and Plan Start: 11/29/24 12:13 Freq: Status: Active Protocol: Document 01/04/25 13:03 [facility] (Rec: 01/04/25 13:48 [facility] [id number]) Physical Therapy Assessment Goals lifting Short Term Goal (STG Pt will be able to lift at 25# from ground to ) demonstrate proper mechanics and improved ability to perform household activities. 12/28-able to do squats w/10lbs STG Duration 12/31/24 Placement Director Goal (LTG) Pt will be able to lift at 50# from ground to demonstrate proper mechanics and improved ability to perform household activities. LTG Duration 01/25/25 activity Halfway Goal (LTG) Pt will be able to perform activities at least 6 days per week to demonstrate better tolerance to activity and reduced impact on activity d/t pain. 12/22/24: cut grass, fixed up shop, watered plants - no pain. 12/28-depends on the day LTG Duration 01/25/25 Assessment Summary Assessment Pt still required cues with squatting but is improving w/cues w/less pain noted in body. he is cont to work on strengthening at home. Cont PT for working on endurance, strength and balance. Physical Therapy Plan Frequency and Duration Frequency of 2x/Week Treatment Duration of 8 treatment (weeks) Plan of Care Start 11/30/24 Date Plan of Care End 01/25/25 Date Therapeutic Interventions Therapeutic Balance Training,Coordination Training,Gait Training, Interventions Home Exercise Program,Joint Mobilizations,Manual Therapy,Neuromuscular Re-education,Patient/Caregiver Education,Self-Care/Home Management,Therapeutic Activities,Therapeutic Exercises Next Visit Focus/Plan Next Note Type Treatment Note Next Visit Plan vitals as needed, cont to work tspine, core and stability exercises, manual along vagus and viscerally
--- NOTE | 2025-01-04 15:17 | PT.OPPN ---
Current Diagnoses Post COVID-19 condition, unspecified (01/04/25) Physical Therapy Progress Note PT-OP-A Visit Information Start: 11/29/24 12:13 Freq: Status: Active Protocol: Document 01/04/25 13:03 LR (Rec: 01/04/25 13:48 [facility] [id number]) Out-Patient Physical Therapy Visit Information Visit Information Visit Type Progress Note Visit Start Time 13:05 Visit Stop Time 13:45 Visit Number 6 Number of WASTE PAPER HAMMERMILL OPERATOR Visits 0 PT-OP-B Current Condition Start: 11/29/24 12:13 Freq: Status: Active Protocol: Document 11/30/24 11:34 GG (Rec: 11/30/24 13:00 GG [id number]) Current Condition History of Current Condition Onset Date 2 years ago Current Complaints post-COVID/deconditioning History of Current Pt reports having had two bouts of COVID. Has done Condition vaccines and boosters. Noted reaction to Paxlovid. Major complaint is that he can't get his HR up like he could prior to COVID, as well as other signs/symptoms including: a-fib, HTN, dizziness, brain fog, GI issues following activity, worse sleep. 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 Prior, had a gym routine and worked out regularly, prefers the structure w/ a routine. Currently, has bought a rowing machine but hasn't used it yet and walks about 2 hours, is active around the house, but does not feel like that is doing much. Other medical hx that had been occurring prior to COVID includes, DDD that can disrupt sleep if not in proper position, memory loss. Sleeps w/ cervical pillow and notes general reduced ROM in neck. Can wake up w/ numbness and tingling if he sleeps wrong and notes that he does not sleep well anyway, wears a night baker d/t minor grinding. Has not gotten sleep study done, but notes no snoring. Notes memory loss that had started prior to COVID, has had study done at [place] but results not back yet. Enjoys reading and notes that it is difficult to remember lots of different names and appt times. Brain scan done, showing shrinking hippocampus. Hx of falls: tripped over object in April and scrapped up shoulders and head. Comments about general arthritis and achy joints that can fluctuate in pain and can limit from him from activities. vitals: pre-testing: BP 127/72 HR 56 post-testing: BP 151/64 HR 68 Treatment Goals Patient/Caregiver household activities w/o pain, picking something off Goals floor, heavy lifting, regimented exercise plan, able to do activities more days/week w/o symptoms PT-OP-C Subjective Start: 11/29/24 12:13 Freq: Status: Active Protocol: Document 01/04/25 13:03 [facility] (Rec: 01/04/25 13:48 [facility] [id number]) OP-PT Subjective Patient Comments Patient Comments squats w/wt irritate back a little PT-OP-E Functional Tests Start: 11/29/24 12:13 Freq: Status: Active Protocol: Document 11/30/24 11:34 GG (Rec: 11/30/24 13:00 GG [id number]) Functional Tests 6 Minute Walk Test Distance 1819ft 30 Second Sit to Stand Test Score 17 Functional Gait Assessment Score 28 PT-OP-T Assessment and Plan Start: 11/29/24 12:13 Freq: Status: Active Protocol: Document 01/04/25 13:03 [facility] (Rec: 01/04/25 13:48 [facility] [id number]) Physical Therapy Assessment Goals lifting Short Term Goal (STG Pt will be able to lift at 25# from ground to ) demonstrate proper mechanics and improved ability to perform household activities. 12/28-able to do squats w/10lbs STG Duration 12/31/24 Bread Molder Goal (LTG) Pt will be able to lift at 50# from ground to demonstrate proper mechanics and improved ability to perform household activities. LTG Duration 01/25/25 activity Bread Molder Goal (LTG) Pt will be able to perform activities at least 6 days per week to demonstrate better tolerance to activity and reduced impact on activity d/t pain. 12/22/24: cut grass, fixed up shop, watered plants - no pain. 12/28-depends on the day LTG Duration 01/25/25 Assessment Summary Assessment Pt still required cues with squatting but is improving w/cues w/less pain noted in body. he is cont to work on strengthening at home. Cont PT for working on endurance, strength and balance. Physical Therapy Plan Frequency and Duration Frequency of 2x/Week Treatment Duration of 8 treatment (weeks) Plan of Care Start 11/30/24 Date Plan of Care End 01/25/25 Date Therapeutic Interventions Therapeutic Balance Training,Coordination Training,Gait Training, Interventions Home Exercise Program,Joint Mobilizations,Manual Therapy,Neuromuscular Re-education,Patient/Caregiver Education,Self-Care/Home Management,Therapeutic Activities,Therapeutic Exercises Next Visit Focus/Plan Next Note Type Treatment Note Next Visit Plan vitals as needed, cont to work tspine, core and stability exercises, manual along vagus and viscerally
--- NOTE | 2025-01-06 13:52 | PT.OTN ---
Current Diagnoses Post COVID-19 condition, unspecified (01/06/25) Physical Therapy Treatment Note PT-OP-A Visit Information Start: 11/29/24 12:13 Freq: Status: Active Protocol: Document 01/06/25 12:30 [facility] (Rec: 01/06/25 13:52 [facility] [id number]) Out-Patient Physical Therapy Visit Information Visit Information Visit Type Treatment Note Visit Start Time 13:06 Visit Stop Time 13:45 Visit Number 7 Number of ASSISTANCE COORDINATOR Visits 0 PT-OP-B Current Condition Start: 11/29/24 12:13 Freq: Status: Active Protocol: Document 11/30/24 11:34 GG (Rec: 11/30/24 13:00 GG [id number]) Current Condition History of Current Condition Onset Date 2 years ago Current Complaints post-COVID/deconditioning History of Current Pt reports having had two bouts of COVID. Has done Condition vaccines and boosters. Noted reaction to Paxlovid. Major complaint is that he can't get his HR up like he could prior to COVID, as well as other signs/symptoms including: a-fib, HTN, dizziness, brain fog, GI issues following activity, worse sleep. 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 Prior, had a gym routine and worked out regularly, prefers the structure w/ a routine. Currently, has bought a rowing machine but hasn't used it yet and walks about 2 hours, is active around the house, but does not feel like that is doing much. Other medical hx that had been occurring prior to COVID includes, DDD that can disrupt sleep if not in proper position, memory loss. Sleeps w/ cervical pillow and notes general reduced ROM in neck. Can wake up w/ numbness and tingling if he sleeps wrong and notes that he does not sleep well anyway, wears a guard rail installer d/t minor grinding. Has not gotten sleep study done, but notes no snoring. Notes memory loss that had started prior to COVID, has had study done at [place] but results not back yet. Enjoys reading and notes that it is difficult to remember lots of different names and appt times. Brain scan done, showing shrinking hippocampus. Hx of falls: tripped over object in April and scrapped up shoulders and head. Comments about general arthritis and achy joints that can fluctuate in pain and can limit from him from activities. vitals: pre-testing: BP 127/72 HR 56 post-testing: BP 151/64 HR 68 Treatment Goals Patient/Caregiver household activities w/o pain, picking something off Goals floor, heavy lifting, regimented exercise plan, able to do activities more days/week w/o symptoms PT-OP-C Subjective Start: 11/29/24 12:13 Freq: Status: Active Protocol: Document 01/06/25 12:30 [facility] (Rec: 01/06/25 13:52 [facility] [id number]) OP-PT Subjective Patient Comments Patient Comments did squats w/10 lbs without issue. PT-OP-E Functional Tests Start: 11/29/24 12:13 Freq: Status: Active Protocol: Document 11/30/24 11:34 GG (Rec: 11/30/24 13:00 GG [id number]) Functional Tests 6 Minute Walk Test Distance 1819ft 30 Second Sit to Stand Test Score 17 Functional Gait Assessment Score 28 PT-OP-Q Treatments Start: 11/29/24 12:13 Freq: Status: Active Protocol: Document 01/06/25 12:30 [facility] (Rec: 01/06/25 13:52 [facility] [id number]) Gym Equipment Shuttle Balance red clips Comments Fwd: WBOS, NBOS, staggered stance B lat: WBOS Therapeutic Exercises Supine Exercises chin tucks Supine Exercise Name PT then self resisteed Reps/Minutes 5 min foam roll Supine Exercise Name UE flex, abd, Habd Resistance foam roll and pillow under head Reps/Minutes 15 ea Standing Exercises paloff press Side bilateral Resistance 2 lvl 2 band Reps/Minutes 15 ea lunge Standing Exercise walking cues depth Name Side bilateral Equipment Used 5lb wts B hands Reps/Minutes 2x50ft Comments cues hip hinge and back knee bent Manual Therapy Treatment Consent Patient gave verbal Yes consent for manual treatment Soft Tissue Mobilization cervical Comments paraspinals and ligament flavum w/flex, SOR supine w/ chin tucks, scalenes w/chin tucks Joint Mobilizations thoracic Reps/Duration PA supine w/chin tucks T1-3 Neuro Re-Education Treatment Balance Activities hurdles Comments w/foam btwn x10 recip SLS wt cone taps Comments 4 point tpod tap w/PT calling the colors. PT-OP-T Assessment and Plan Start: 11/29/24 12:13 Freq: Status: Active Protocol: Document 01/06/25 12:30 [facility] (Rec: 01/06/25 13:52 [facility] [id number]) Physical Therapy Assessment Goals lifting Short Term Goal (STG Pt will be able to lift at 25# from ground to ) demonstrate proper mechanics and improved ability to perform household activities. 12/28-able to do squats w/10lbs STG Duration 12/31/24 Half-Way Goal (LTG) Pt will be able to lift at 50# from ground to demonstrate proper mechanics and improved ability to perform household activities. LTG Duration 01/25/25 activity Half-Way Goal (LTG) Pt will be able to perform activities at least 6 days per week to demonstrate better tolerance to activity and reduced impact on activity d/t pain. 12/22/24: cut grass, fixed up shop, watered plants - no pain. 12/28-depends on the day LTG Duration 01/25/25 Assessment Summary Assessment Improved neck position w/manual and pt to cont chin tucks. DId well with progression of exercises and balance challenges Physical Therapy Plan Frequency and Duration Frequency of 2x/Week Treatment Duration of 8 treatment (weeks) Plan of Care Start 11/30/24 Date Plan of Care End 01/25/25 Date Next Visit Focus/Plan Next Note Type Treatment Note Next Visit Plan vitals as needed, cont to work tspine, core and stability exercises, manual along vagus and viscerally, strength for full body and balance PT-Therapy Code Fee Billing Start: 11/29/24 12:13 Freq: Status: Active Protocol: Document 01/06/25 12:30 [facility] (Rec: 01/06/25 13:52 [facility] [id number]) Physical Therapy Total Visit Minutes 39 PT Charge Codes - Fee KX Modifier Therapy Cap No Exclusion Modifier Therapeutic Exercise (19542) Minutes 12 PT Unit(s) per 15 1 min Manual Therapy (59794) Minutes 13 PT Unit(s) per 15 1 min Neuromuscular Re-Education (93963) Minutes 15 PT Unit(s) per 15 1 min ASSISTANCE COORDINATOR-Therapy Code Fee Billing Start: 11/29/24 12:13 Freq: Status: Active Protocol: Document 12/30/24 13:01 [facility] (Rec: 12/30/24 16:05 [facility] Laptop) Physical Therapy Total Visit Minutes 40 Comments 25 w/ PT, 15 w/ ASSISTANCE COORDINATOR ASSISTANCE COORDINATOR Charge Codes - Fee KX Modifier Therapy Cap No Exclusion Modifier Therapeutic Exercise (46842) Minutes 10 ASSISTANCE COORDINATOR Unit(s) per 15 1 min Self Care/Home Management (24135) Minutes 5 ASSISTANCE COORDINATOR Unit(s) per 15 0 Minutes
--- NOTE | 2025-01-11 15:07 | PT.OTN ---
Current Diagnoses Post COVID-19 condition, unspecified (01/11/25) Physical Therapy Treatment Note PT-OP-A Visit Information Start: 11/29/24 12:13 Freq: Status: Active Protocol: Document 01/11/25 13:02 LR (Rec: 01/11/25 15:06 [facility] [id number]) Out-Patient Physical Therapy Visit Information Visit Information Visit Type Treatment Note Visit Start Time 13:03 Visit Stop Time 13:44 Visit Number 8 (PN due 02/04) Number of COMBINER Visits 0 PT-OP-B Current Condition Start: 11/29/24 12:13 Freq: Status: Active Protocol: Document 11/30/24 11:34 GG (Rec: 11/30/24 13:00 GG [id number]) Current Condition History of Current Condition Onset Date 2 years ago Current Complaints post-COVID/deconditioning History of Current Pt reports having had two bouts of COVID. Has done Condition vaccines and boosters. Noted reaction to Paxlovid. Major complaint is that he can't get his HR up like he could prior to COVID, as well as other signs/symptoms including: a-fib, HTN, dizziness, brain fog, GI issues following activity, worse sleep. 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 Prior, had a gym routine and worked out regularly, prefers the structure w/ a routine. Currently, has bought a rowing machine but hasn't used it yet and walks about 2 hours, is active around the house, but does not feel like that is doing much. Other medical hx that had been occurring prior to COVID includes, DDD that can disrupt sleep if not in proper position, memory loss. Sleeps w/ cervical pillow and notes general reduced ROM in neck. Can wake up w/ numbness and tingling if he sleeps wrong and notes that he does not sleep well anyway, wears a yarn dumper d/t minor grinding. Has not gotten sleep study done, but notes no snoring. Notes memory loss that had started prior to COVID, has had study done at [place] but results not back yet. Enjoys reading and notes that it is difficult to remember lots of different names and appt times. Brain scan done, showing shrinking hippocampus. Hx of falls: tripped over object in April and scrapped up shoulders and head. Comments about general arthritis and achy joints that can fluctuate in pain and can limit from him from activities. vitals: pre-testing: BP 127/72 HR 56 post-testing: BP 151/64 HR 68 Treatment Goals Patient/Caregiver household activities w/o pain, picking something off Goals floor, heavy lifting, regimented exercise plan, able to do activities more days/week w/o symptoms PT-OP-C Subjective Start: 11/29/24 12:13 Freq: Status: Active Protocol: Document 01/11/25 13:02 [facility] (Rec: 01/11/25 15:06 [facility] [id number]) OP-PT Subjective Patient Comments Patient Comments pt reports working on [email or web address]. tripped a little in [email or web address] w/lunges Patient Reported Improving Progress PT-OP-E Functional Tests Start: 11/29/24 12:13 Freq: Status: Active Protocol: Document 11/30/24 11:34 GG (Rec: 11/30/24 13:00 GG [id number]) Functional Tests 6 Minute Walk Test Distance 1819ft 30 Second Sit to Stand Test Score 17 Functional Gait Assessment Score 28 PT-OP-Q Treatments Start: 11/29/24 12:13 Freq: Status: Active Protocol: Document 01/11/25 13:02 [facility] (Rec: 01/11/25 15:06 [facility] [id number]) Therapeutic Exercises Supine Exercises chin tucks Reps/Minutes 5 Prone Exercises plank Prone Exercise Name 1. on hands 2. on knees w/row Side bilateral Equipment Used 2. 5lb B Reps/Minutes 1. 30 sec 2. 2x15 Comments cues scap and neck Standing Exercises wall posture Standing Exercise w/chin tuck into pillow and B arm ext Name Side bilateral Reps/Minutes 2x 1 min paloff press Side bilateral Reps/Minutes 5 Manual Therapy Treatment Consent Patient gave verbal Yes consent for manual treatment Soft Tissue Mobilization cervical Comments paraspinals and ligament flavum w/flex, SOR supine w/ chin tucks, scalenes & SCM w/chin tucks abdomen Comments 1. fascia superior to stomach w/ext and L rot 2. coronary ligament Joint Mobilizations cervical Comments AP C 4-6 w/chin tuck L thoracic Comments PA seated c/r T1-3 , T6-8 Self-Care/Home Management Treatment Education Other Education 10 miN: edu on shoe options like altras and topos for wider toe box and importance of good shoes for working out, encouraged to cont to work with diet w/nutrionist PT-OP-T Assessment and Plan Start: 11/29/24 12:13 Freq: Status: Active Protocol: Document 01/11/25 13:02 [facility] (Rec: 01/11/25 15:06 [facility] [id number]) Physical Therapy Assessment Goals lifting Short Term Goal (STG Pt will be able to lift at 25# from ground to ) demonstrate proper mechanics and improved ability to perform household activities. 12/28-able to do squats w/10lbs STG Duration 12/31/24 Assisted Goal (LTG) Pt will be able to lift at 50# from ground to demonstrate proper mechanics and improved ability to perform household activities. LTG Duration 01/25/25 activity Assisted Goal (LTG) Pt will be able to perform activities at least 6 days per week to demonstrate better tolerance to activity and reduced impact on activity d/t pain. 12/22/24: cut grass, fixed up shop, watered plants - no pain. 12/28-depends on the day LTG Duration 01/25/25 Assessment Summary Assessment Pt had improved neck position after manual and exercises but requires a lot of cueing for positioning during exercises. Physical Therapy Plan Frequency and Duration Frequency of 2x/Week Treatment Duration of 8 treatment (weeks) Plan of Care Start 11/30/24 Date Plan of Care End 01/25/25 Date Next Visit Focus/Plan Next Note Type Treatment Note Next Visit Plan vitals as needed, cont to work tspine, core and stability exercises, manual along vagus and viscerally, strength for full body and balance
--- NOTE | 2025-01-13 13:46 | PT.OTN ---
Current Diagnoses Post COVID-19 condition, unspecified (01/13/25) Physical Therapy Treatment Note PT-OP-A Visit Information Start: 11/29/24 12:13 Freq: Status: Active Protocol: Document 01/13/25 13:03 LR (Rec: 01/13/25 13:42 [facility] [id number]) Out-Patient Physical Therapy Visit Information Visit Information Visit Type Treatment Note Visit Start Time 13:04 Visit Stop Time 13:44 Visit Number 9 (PN due 01/25) Number of GRANTS DIRECTOR Visits 0 PT-OP-B Current Condition Start: 11/29/24 12:13 Freq: Status: Active Protocol: Document 11/30/24 11:34 GG (Rec: 11/30/24 13:00 GG [id number]) Current Condition History of Current Condition Onset Date 2 years ago Current Complaints post-COVID/deconditioning History of Current Pt reports having had two bouts of COVID. Has done Condition vaccines and boosters. Noted reaction to Paxlovid. Major complaint is that he can't get his HR up like he could prior to COVID, as well as other signs/symptoms including: a-fib, HTN, dizziness, brain fog, GI issues following activity, worse sleep. 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 Prior, had a gym routine and worked out regularly, prefers the structure w/ a routine. Currently, has bought a rowing machine but hasn't used it yet and walks about 2 hours, is active around the house, but does not feel like that is doing much. Other medical hx that had been occurring prior to COVID includes, DDD that can disrupt sleep if not in proper position, memory loss. Sleeps w/ cervical pillow and notes general reduced ROM in neck. Can wake up w/ numbness and tingling if he sleeps wrong and notes that he does not sleep well anyway, wears a deputy sheriff building guard d/t minor grinding. Has not gotten sleep study done, but notes no snoring. Notes memory loss that had started prior to COVID, has had study done at [facility] but results not back yet. Enjoys reading and notes that it is difficult to remember lots of different names and appt times. Brain scan done, showing shrinking hippocampus. Hx of falls: tripped over object in April and scrapped up shoulders and head. Comments about general arthritis and achy joints that can fluctuate in pain and can limit from him from activities. vitals: pre-testing: BP 127/72 HR 56 post-testing: BP 151/64 HR 68 Treatment Goals Patient/Caregiver household activities w/o pain, picking something off Goals floor, heavy lifting, regimented exercise plan, able to do activities more days/week w/o symptoms PT-OP-C Subjective Start: 11/29/24 12:13 Freq: Status: Active Protocol: Document 01/13/25 13:03 [facility] (Rec: 01/13/25 13:42 [facility] [id number]) OP-PT Subjective Patient Comments Patient Comments Pt reports his LB is stiff from being on a ladder and having to paint window frames PT-OP-E Functional Tests Start: 11/29/24 12:13 Freq: Status: Active Protocol: Document 11/30/24 11:34 GG (Rec: 11/30/24 13:00 GG [id number]) Functional Tests 6 Minute Walk Test Distance 1819ft 30 Second Sit to Stand Test Score 17 Functional Gait Assessment Score 28 PT-OP-Q Treatments Start: 11/29/24 12:13 Freq: Status: Active Protocol: Document 01/13/25 13:03 [facility] (Rec: 01/13/25 13:42 [facility] [id number]) Therapeutic Exercises Standing Exercises wall posture Standing Exercise w/chin tuck into pillow and B arm ext Name Side bilateral Reps/Minutes 2x 1 min Manual Therapy Treatment Consent Patient gave verbal Yes consent for manual treatment Soft Tissue Mobilization cervical Comments paraspinals and ligament flavum w/flex, SOR supine w/ chin tucks, scalenes & SCM w/chin tucks Joint Mobilizations hip Joint R on axis ER c/r innominate Joint caudal L w/LTR, IR L c/r, ER R c/r thoracic Comments seated PA T 5-6, 8-9 c/r Neuro Re-Education Treatment Balance Activities bosu Comments 1. fwd step up to SLS x12 B 2. side step up to SL x12 B 3. squat blue side x15 4. mini lunge blue side x10 B Movement Re-Education Movement Re- rhythmic facilitation to trunk w/neural trunk and neck education Activities posture 2x1 min PT-OP-T Assessment and Plan Start: 11/29/24 12:13 Freq: Status: Active Protocol: Document 01/13/25 13:03 [facility] (Rec: 01/13/25 13:42 [facility] [id number]) Physical Therapy Assessment Goals lifting Short Term Goal (STG Pt will be able to lift at 25# from ground to ) demonstrate proper mechanics and improved ability to perform household activities. 12/28-able to do squats w/10lbs STG Duration 12/31/24 Croze Cutter Helper Goal (LTG) Pt will be able to lift at 50# from ground to demonstrate proper mechanics and improved ability to perform household activities. LTG Duration 01/25/25 activity [facility] Goal (LTG) Pt will be able to perform activities at least 6 days per week to demonstrate better tolerance to activity and reduced impact on activity d/t pain. 12/22/24: cut grass, fixed up shop, watered plants - no pain. 12/28-depends on the day LTG Duration 01/25/25 Assessment Summary Assessment pt improving w/posture w/manual and requires cues to keep gains and more neutral neck position. difficulty with Bosu exercises. Physical Therapy Plan Frequency and Duration Frequency of 2x/Week Treatment Duration of 8 treatment (weeks) Plan of Care Start 11/30/24 Date Plan of Care End 01/25/25 Date Next Visit Focus/Plan Next Note Type Treatment Note Next Visit Plan vitals as needed, cont to work tspine, core and stability exercises, manual along vagus and viscerally, strength for full body and balance
--- NOTE | 2025-01-18 11:52 | PT-OP ANOTE ---
Pt did not show for appt. CAR SHAGGER called his home # with no dial tone nor ring, trialed 3 phones in clinic with no ring to that # ([phone]). Called family member's cell and she good message (she's OOT) will call pt and forward message call back reschedule appt 1-2 visits before 01/25/25 (date POC expires). Family is unaware why home # not working, will call pt and pass message along. Needs see PT Beverly by 01/25/25 to update POC.
--- NOTE | 2025-01-18 18:39 | PT.OTN ---
Current Diagnoses Post COVID-19 condition, unspecified (01/18/25) Physical Therapy Treatment Note PT OP: Full Body Start: 01/18/25 15:24 Freq: Status: Active Protocol: Document 01/18/25 15:24 [facility] (Rec: 01/18/25 16:21 [facility] [id number]) Out-Patient Physical Therapy Visit Information Visit Information Visit Type Progress Note Visit Start Time 15:22 Visit Stop Time 16:02 Visit Number 10 (PN due 02/17) Number of RUBBER TIRE CURER Visits 0 OP-PT Subjective Patient Comments Patient Comments pt reports LB sore from weeding. Last few days had some low energy Therapeutic Exercises Standing Exercises bottoms up Standing Exercise on step Name Side bilateral Reps/Minutes 10 sec x6 Other Exercises thread the needle Side bilateral Reps/Minutes 10 dogward dog Side bilateral Reps/Minutes 30 sec x2 Comments cues press through shoulders and heels down cat/cow Reps/Minutes 10 Comments cues neck and head position luis pose Other Exercise Name fwd and sides B Reps/Minutes 30 sec ea Manual Therapy Treatment Consent Patient gave verbal Yes consent for manual treatment Soft Tissue Mobilization HS Body Location B Comments percussion w/SLR c/r lumbar Body Location B ES rolling in angry cat Mobilization Type Rolling Intensity/Depth Moderate Joint Mobilizations lumbar Comments s/l transverse R w/SB; gapping L5-S1: L4-5 w/cat/cow sit back Physical Therapy Assessment Goals lifting Short Term Goal (STG Pt will be able to lift at 25# from ground to ) demonstrate proper mechanics and improved ability to perform household activities. 12/28-able to do squats w/10lbs STG Duration 12/31/24 Care Home Goal (LTG) Pt will be able to lift at 50# from ground to demonstrate proper mechanics and improved ability to perform household activities. LTG Duration 01/25/25 activity Care Home Goal (LTG) Pt will be able to perform activities at least 6 days per week to demonstrate better tolerance to activity and reduced impact on activity d/t pain. 12/22/24: cut grass, fixed up shop, watered plants - no pain. 12/28-depends on the day LTG Duration 03/15 Assessment Summary Assessment Pt did well with manual treatment of HS w/improved length and had improved feeling of being looser after session Physical Therapy Plan Frequency and Duration Frequency of 2x/Week Treatment Duration of 8 treatment (weeks) Plan of Care Start 01/18/25 Plan of Care End 03/15/25 Date Therapeutic Interventions Therapeutic Balance Training,Coordination Training,Gait Training, Interventions Home Exercise Program,Joint Mobilizations,Manual Therapy,Neuromuscular Re-education,Patient/Caregiver Education,Self-Care/Home Management,Therapeutic Activities,Therapeutic Exercises Next Visit Focus/Plan Next Note Type Treatment Note Next Visit Plan vitals as needed, cont to work tspine, core and stability exercises, manual along vagus and viscerally, strength for full body and balance
--- NOTE | 2025-01-25 15:21 | PT.OTN ---
Current Diagnoses Post COVID-19 condition, unspecified (01/25/25) Physical Therapy Treatment Note PT OP: Full Body Start: 01/18/25 15:24 Freq: Status: Active Protocol: Document 01/25/25 14:35 [facility] (Rec: 01/25/25 15:21 [facility] [id number]) Out-Patient Physical Therapy Visit Information Visit Information Visit Type Treatment Note Visit Start Time 14:35 Visit Stop Time 15:15 Visit Number 11 Number of CASHIER SUPERVISOR Visits 0 Progress Note Due 02/17/25 OP-PT Subjective Patient Comments Patient Comments woke up with the calves cramping last night Gym Equipment Shuttle Balance red clips Comments Fwd: WBOS, NBOS, staggered stance B lat: WBOS Therapeutic Exercises Standing Exercises stretch Standing Exercise calf on step Name Side bilateral Reps/Minutes 45 sec x2 bottoms up Standing Exercise on step Name Side bilateral Reps/Minutes 10 sec x6 wall posture Standing Exercise w/chin tuck into towel and B arm ext Name Side bilateral Reps/Minutes x 1 min Other Exercises thread the needle Side bilateral Reps/Minutes 10 dogward dog Side bilateral Reps/Minutes 30 sec x2 Comments cues press through shoulders and heels down cat/cow Reps/Minutes 10 Comments cues neck and head position luis pose Other Exercise Name fwd and sides B Reps/Minutes 30 sec ea Manual Therapy Treatment Consent Patient gave verbal Yes consent for manual treatment Soft Tissue Mobilization cervical Comments paraspinals and ligament flavum w/flex, SOR supine w/ chin tucks, scalenes & SCM w/chin tucks abdomen Comments 1. fascia superior to stomach w/chin tuck Joint Mobilizations thoracic Comments seated PA 1-2 c/r and PA T 7 c/r Neuro Re-Education Treatment Balance Activities bosu Comments 1. fwd step up to 2 ft x12 B 2. side step up and over x15 B 3. squat blue side x15 4. mini lunge blue side x10 B Physical Therapy Assessment Goals lifting Short Term Goal (STG Pt will be able to lift at 25# from ground to ) demonstrate proper mechanics and improved ability to perform household activities. 12/28-able to do squats w/10lbs STG Duration 12/31/24 Half-Way Goal (LTG) Pt will be able to lift at 50# from ground to demonstrate proper mechanics and improved ability to perform household activities. LTG Duration 01/25/25 activity Websphere Commerce Architect Goal (LTG) Pt will be able to perform activities at least 6 days per week to demonstrate better tolerance to activity and reduced impact on activity d/t pain. 12/22/24: cut grass, fixed up shop, watered plants - no pain. 12/28-depends on the day LTG Duration 03/15 Assessment Summary Assessment cues still needed for yoga exercises for mobility. Encouraged to stretch calves to dec cramping. Improved posture after manual with improved ability to get head back Physical Therapy Plan Frequency and Duration Frequency of 2x/Week Treatment Duration of 8 treatment (weeks) Plan of Care Start 01/18/25 Date Plan of Care End 03/15/25 Date Next Visit Focus/Plan Next Note Type Treatment Note Next Visit Plan vitals as needed, cont to work tspine, core and stability exercises, manual along vagus and viscerally, strength for full body and balance
--- NOTE | 2025-02-03 12:15 | PT.OTN ---
Addendum entered and electronically signed by Faye Hernandez, TYLER 02/03/25 12:39: Forgot to keep copy of HEP single clamshell hooklying and resisted stepping today. Original Note: Current Diagnoses Post COVID-19 condition, unspecified (02/03/25) Physical Therapy Treatment Note PT OP: Full Body Start: 01/18/25 15:24 Freq: Status: Active Protocol: Document 02/03/25 11:35 [facility] (Rec: 02/03/25 12:37 [facility] [id number]) Out-Patient Physical Therapy Visit Information Visit Information Visit Type Treatment Note Visit Start Time 11:35 Visit Stop Time 12:15 Visit Number 12 Number of BOATHOUSE KEEPER Visits 1 Progress Note Due 02/17/25 Precautions Precautions States has history of GERD. OP-PT Subjective Patient Comments Patient Comments Pt reports getting ready for [employer] sale so lifiting things, up/down ladder and re/arranged items on shelf while on ladder. Therapeutic Exercises Supine Exercises Core Series Supine Exercise Name LTR, HS curl, bridge Resistance AROM LTR & bridge; TB #3 curl BOATHOUSE KEEPER anchor Equipment Used 55cm tball Reps/Minutes 10 reps each Comments cued neural pelvic, TA draw in needed for spinal support resisted KFO Supine Exercise Name REviewed: single leg Side bilateral Resistance TB #4 dark blue Reps/Minutes 2x10 each LE Comments cued slow pacing con/ecc with PPT TA support Sidelying Exercises open book Side bilateral Reps/Minutes 8 Comments cues no rolling and knees bent up Standing Exercises Resisted stepping Standing Exercise added with HO HEP: f/b/lat Name Side bilateral Resistance Tb #4 around ankles Reps/Minutes 10 ft x2 laps each direction Neuro Re-Education Treatment Balance Activities SLS Comments 12 sec LLE, 60 RLE Trialed cog challenge question about attending senior center- LOB but self recovery contact counter nearby, cues tall, TA draw in, glut engagement, over Stance LE front mirror improved RLE stand time. Suprised better balance on R because is my bad knee Self-Care/Home Management Treatment Education Patient Education Body Mechanics,Home Exercise Program,Posture,Safety Other Education Discussion extended time throughout tx: postural alignment over Stance LE during resisted stepping and SLS carryover for HEP. Senior center classes and Silver sneakers at [employer]/classes for free. Physical Therapy Assessment Goals lifting Short Term Goal (STG Pt will be able to lift at 25# from ground to ) demonstrate proper mechanics and improved ability to perform household activities. 12/28-able to do squats w/10lbs STG Duration 12/31/24 Geophysical Party Chief Goal (LTG) Pt will be able to lift at 50# from ground to demonstrate proper mechanics and improved ability to perform household activities. LTG Duration 01/25/25 activity [facility] Goal (LTG) Pt will be able to perform activities at least 6 days per week to demonstrate better tolerance to activity and reduced impact on activity d/t pain. 12/22/24: cut grass, fixed up shop, watered plants - no pain. 12/28-depends on the day LTG Duration 03/15 Assessment Summary Assessment Pt improved hip abuctor, core and glut strengthening during instruction increased resisted ther ex with HOs for carryover set up/cues written for proper form and stability. Cues for algnment SLS end tx to improve strength and balance for hiking, ladder use and all activities wants to attend safety. Pt reports uses trek poles for more inclines needed. Physical Therapy Plan Frequency and Duration Frequency of 2x/Week Treatment Duration of 8 treatment (weeks) Plan of Care Start 01/18/25 Date Plan of Care End 03/15/25 Date Therapeutic Interventions Therapeutic Balance Training,Coordination Training,Gait Training, Interventions Home Exercise Program,Joint Mobilizations,Manual Therapy,Neuromuscular Re-education,Patient/Caregiver Education,Self-Care/Home Management,Therapeutic Activities,Therapeutic Exercises Next Visit Focus/Plan Next Note Type Treatment Note Next Visit Plan vitals as needed, cont to work tspine, core and stability exercises, manual along vagus and viscerally, strength for full body and balance
--- NOTE | 2025-02-10 11:35 | PT.OTN ---
Current Diagnoses Post COVID-19 condition, unspecified (02/10/25) Physical Therapy Treatment Note PT OP: Full Body Start: 01/18/25 15:24 Freq: Status: Active Protocol: Document 02/10/25 10:46 [facility] (Rec: 02/10/25 11:36 [facility] [id number]) Out-Patient Physical Therapy Visit Information Visit Information Visit Type Treatment Note Visit Start Time 10:46 Visit Stop Time 11:35 Visit Number 13 Number of PEDAL ASSEMBLER Visits 2 Progress Note Due 02/17/25 Precautions Precautions States has history of GERD. Vital Signs Comments Vital Signs Comments L UE automated seated: pre bike: 160/85, HR 61, 98% post bike: (little SOB) 185/75 HR 53 OP-PT Subjective Patient Comments Patient Comments Pt reports was up early take to bus. THey are tolerable, harder to SLS on L than R. Walked 20 min each direction walk with incline/declines not super steep but incline pretty q Cardio Equipment Recumbent Bicycle Duration (Minutes) 2 Resistance 6 Seat Position in 5 Other 67 RPMs- stomach little upset (fast food and coffee this am?) Therapeutic Exercises Sitting Exercises HIp IR & ER TB Sitting Exercise added to HEP with HO (IR only) Name Side bilateral Resistance TB #4 dark blue at ankles Equipment Used kick ball between knees Reps/Minutes 10 reps each x2 sets Comments cued slow, allowable range CLamshell Sitting Exercise added to HEP with HO Name Side bilateral Resistance Tb #4 dark blue at thighs Reps/Minutes 60sed hold then 15 reps out/in LAQ Sitting Exercise added to HEP with HO Name Reps/Minutes 15 reps each Standing Exercises Resisted stepping Standing Exercise reviewed Name Side bilateral Resistance Tb #4 around ankles Reps/Minutes 10 ft x2 laps each direction Comments good form lunge Standing Exercise walking cues depth Name Side bilateral Equipment Used cone taps Reps/Minutes 5 reps x2 sets on each side Comments cues hip hinge and back knee bent Neuro Re-Education Treatment Balance Activities Tandem Details future SLS Comments 31 sec LLE, 60 RLE bosu Equipment PRN //bars Comments 1. fwd step up to 2 ft x18B 2. side step up and over x8 B 3. squat blue side x10 4. mini lunge blue side x10 B Physical Therapy Assessment Goals lifting Short Term Goal (STG Pt will be able to lift at 25# from ground to ) demonstrate proper mechanics and improved ability to perform household activities. 12/28-able to do squats w/10lbs STG Duration 12/31/24 Securities Research Analyst Goal (LTG) Pt will be able to lift at 50# from ground to demonstrate proper mechanics and improved ability to perform household activities. LTG Duration 01/25/25 activity Skilled Nursing Goal (LTG) Pt will be able to perform activities at least 6 days per week to demonstrate better tolerance to activity and reduced impact on activity d/t pain. 12/22/24: cut grass, fixed up shop, watered plants - no pain. 12/28-depends on the day LTG Duration 03/15 Assessment Summary Assessment Pt worked hard during ther ex today, noted hypertension during recumbent bike again today as has in past treatments seems to be his most taxing activity, pt reports thinks is today after drank coffee and ate fast food not used to earlier this am for fuel to bring to bus. He had good tolerance of increased resistance during ther ex. Continued to provide cues for upright posture, TA, midline stability corrections with improved decrease UE support during BOSU stepping, hip hinge knee & hip alignment with range able to return from during lunges and added resisted hip IR for progression strength to give added stability return to community hiking and for advanced activities in the community. Physical Therapy Plan Frequency and Duration Frequency of 2x/Week Treatment Duration of 8 treatment (weeks) Plan of Care Start 01/18/25 Date Plan of Care End 03/15/25 Date Therapeutic Interventions Therapeutic Balance Training,Coordination Training,Gait Training, Interventions Home Exercise Program,Joint Mobilizations,Manual Therapy,Neuromuscular Re-education,Patient/Caregiver Education,Self-Care/Home Management,Therapeutic Activities,Therapeutic Exercises Next Visit Focus/Plan Next Note Type Treatment Note Next Visit Plan Check vitals as needed, cont to work tspine, core and stability exercises, manual along vagus and viscerally, strength for full body and balance Manual to L>R ankle jt for lunge mobility ADLs and bal SLS on L to put sock on standing.
--- NOTE | 2025-02-15 12:18 | PT.OPPN ---
Current Diagnoses Post COVID-19 condition, unspecified (02/15/25) Physical Therapy Progress Note PT OP: Full Body Start: 01/18/25 15:24 Freq: Status: Active Protocol: Document 02/15/25 11:27 [facility] (Rec: 02/15/25 12:18 [facility] [id number]) Out-Patient Physical Therapy Visit Information Visit Information Visit Type Progress Note Visit Start Time 11:37 Visit Stop Time 12:17 Visit Number 14/15 Number of HEAD RIGGER Visits 0 Progress Note Due 03/17/25 OP-PT Subjective Patient Comments Patient Comments pt reports compliance w/exercises. overall does have some dec activity tolerance still Therapeutic Exercises Supine Exercises chin tucks Reps/Minutes 8 Diaphramatic Breath Reps/Minutes 10 Comments cues to breath lat into ribcage lower and into abdomen Prone Exercises plank Prone Exercise Name on knees w/row Side bilateral Equipment Used 5lb B Reps/Minutes 10 ea Comments cues scap and neck and plank position Sidelying Exercises open book Side bilateral Reps/Minutes 8 Comments cues no rolling and knees bent up-focus on tspine Standing Exercises SL Standing Exercise stance Name Side bilateral Comments posture cues clamshell Side bilateral Equipment Used L4 at knees Reps/Minutes 2x8 ea Comments cues posture, drive through stance leg Resisted stepping Standing Exercise reviewed Name Side bilateral Resistance Tb #4 around ankles Reps/Minutes 15 ft ea Comments good form bottoms up Standing Exercise on 12 in step Name Side bilateral Reps/Minutes 10 sec x6 lunge Standing Exercise walking cues depth Name Side bilateral Resistance 5lb B UEs Reps/Minutes 20ft ea Comments cues hip hinge and back knee bent squat Side bilateral Equipment Used 10lb Reps/Minutes x10 Comments cues foot position Other Exercises thread the needle Side bilateral Reps/Minutes 8 Comments cues rot both direction dogward dog Side bilateral Reps/Minutes 20sec Comments cues press through shoulders and heels down cat/cow Reps/Minutes 10 Comments cues neck and head position luis pose Other Exercise Name fwd and sides B Reps/Minutes 30 sec ea Physical Therapy Assessment Goals lifting Short Term Goal (STG Pt will be able to lift at 25# from ground to ) demonstrate proper mechanics and improved ability to perform household activities. /15-able to do squats w/10lbs STG Duration achieved 9/2 Group Home Goal (LTG) Pt will be able to lift at 50# from ground to demonstrate proper mechanics and improved ability to perform household activities. 02/15-cues needed LTG Duration 01/25/25 activity Group Home Goal (LTG) Pt will be able to perform activities at least 6 days per week to demonstrate better tolerance to activity and reduced impact on activity d/t pain. 12/22/24: cut grass, fixed up shop, watered plants - no pain. 12/28-depends on the day 02/15-improved ; still sleepy sometimes, but has been able to do chores LTG Duration 03/15 Assessment Summary Assessment Pt did well with exercises, but did require cues for posture or form throughout for full completion of exercises. encouraged to inc wt as able w/exercises to load more. Pt making good progress with PT w/improving lifting mechanics and tolerance. Physical Therapy Plan Frequency and Duration Frequency of 2x/Week Treatment Duration of 8 treatment (weeks) Plan of Care Start 01/18/25 Date Plan of Care End 03/15/25 Date Therapeutic Interventions Therapeutic Balance Training,Coordination Training,Gait Training, Interventions Home Exercise Program,Joint Mobilizations,Manual Therapy,Neuromuscular Re-education,Patient/Caregiver Education,Self-Care/Home Management,Therapeutic Activities,Therapeutic Exercises Next Visit Focus/Plan Next Note Type Discharge Summary Next Visit Plan review HEP for DC
--- NOTE | 2025-02-21 14:51 | PT.OTN ---
Current Diagnoses Post COVID-19 condition, unspecified (02/21/25) Physical Therapy Treatment Note PT OP: Full Body Start: 01/18/25 15:24 Freq: Status: Active Protocol: Document 02/21/25 13:52 [facility] (Rec: 02/21/25 14:51 [facility] [id number]) Out-Patient Physical Therapy Visit Information Visit Information Visit Type Discharge Summary Visit Start Time 13:53 Visit Stop Time 14:33 Visit Number 15 Number of CABINET MAKER Visits 0 Progress Note Due 03/17/25 OP-PT Subjective Patient Comments Patient Comments Pt reports was busy this weekend Therapeutic Exercises Supine Exercises chin tucks Reps/Minutes 8 Comments into pillows-cues upper cervical tuck Diaphramatic Breath Reps/Minutes 8 Comments cues to breath lat into ribcage lower and into abdomen Prone Exercises plank Prone Exercise Name on knees w/row Side bilateral Equipment Used 5lb B Reps/Minutes 10 ea Comments cues scap and neck and plank position Sidelying Exercises open book Side bilateral Reps/Minutes 10 Comments cues no rolling and knees bent up-focus on tspine Standing Exercises SL Standing Exercise stance Name Side bilateral Comments posture cues clamshell Side bilateral Equipment Used L4 at knees Reps/Minutes x8 ea Comments cues posture, drive through stance leg Resisted stepping Standing Exercise reviewed Name Side bilateral Resistance Tb #4 around ankles Reps/Minutes 15 ft ea Comments good form bottoms up Standing Exercise on 12 in step Name Side bilateral Reps/Minutes 10 sec x6 wall posture Standing Exercise roll up with chin tuck Name Side bilateral Reps/Minutes 1 min hold lunge Standing Exercise walking cues depth Name Side bilateral Resistance 5lb B UEs Reps/Minutes 20ft total Comments cues hip hinge and back knee bent squat Side bilateral Equipment Used 10lb B Reps/Minutes 2x8 Comments cues foot position Other Exercises tail wags Side bilateral Reps/Minutes 15 Comments cues for hip and shoulder motion coordination thread the needle Side bilateral Reps/Minutes 5 Comments cues rot both direction dogward dog Side bilateral Reps/Minutes 20sec Comments cues press through shoulders and heels down luis pose Other Exercise Name fwd and sides B Reps/Minutes 15 sec ea Physical Therapy Assessment Goals lifting Short Term Goal (STG Pt will be able to lift at 25# from ground to ) demonstrate proper mechanics and improved ability to perform household activities. 7/15-able to do squats w/10lbs STG Duration achieved 02/15 Custodial Goal (LTG) Pt will be able to lift at 50# from ground to demonstrate proper mechanics and improved ability to perform household activities. 02/15-cues needed LTG Duration 01/25/25 activity Custodial Goal (LTG) Pt will be able to perform activities at least 6 days per week to demonstrate better tolerance to activity and reduced impact on activity d/t pain. 12/22/24: cut grass, fixed up shop, watered plants - no pain. 12/28-depends on the day 02/15-improved ; still sleepy sometimes, but has been able to do chores LTG Duration 03/15 Assessment Summary Assessment Pt indep w/HEP at this time and much improved w/his activity tolerance w/occ still fatigue, but encouraged to cont exercises and activity to help with this. He did show improved lifting mechanics. Physical Therapy Plan Discharge Physical Therapy Discharge Reasons Goals Met
--- NOTE | 2025-02-21 17:32 | PT.OPDS ---
Current Diagnoses Post COVID-19 condition, unspecified (02/21/25) Visit Care Team Role Provider Type Tonia Tate MD Family Provider Physician Primary Care Provider Specialty: Family Practice ELECTRICAL [employer] TECHNICIAN Address: [address] [place], [address] Fax: Email: [email or web address] Holli Jung MD Attending Provider Non-Staff Referring Provider Specialty: Physical Medicine and Rehab Address: [address] [place] [address], [address], [address] Email: Visit Number Visit Number Discharge Summary PT OP: Full Body Start: 01/18/25 15:24 Freq: Status: Active Protocol: Document 02/21/25 13:52 [facility] (Rec: 02/21/25 14:51 [facility] [id number]) Out-Patient Physical Therapy Visit Information Visit Information Visit Type Discharge Summary Visit Start Time 13:53 Visit Stop Time 14:33 Visit Number Number of REGISTERED NURSE SURGICAL SERVICES Visits 0 Progress Note Due 03/17/25 OP-PT Subjective Patient Comments Patient Comments Pt reports was busy this weekend Therapeutic Exercises Supine Exercises chin tucks Reps/Minutes 8 Comments into pillows-cues upper cervical tuck Diaphramatic Breath Reps/Minutes 8 Comments cues to breath lat into ribcage lower and into abdomen Prone Exercises plank Prone Exercise Name on knees w/row Side bilateral Equipment Used 5lb B Reps/Minutes 10 ea Comments cues scap and neck and plank position Sidelying Exercises open book Side bilateral Reps/Minutes 10 Comments cues no rolling and knees bent up-focus on tspine Standing Exercises SL Standing Exercise stance Name Side bilateral Comments posture cues clamshell Side bilateral Equipment Used L4 at knees Reps/Minutes x8 ea Comments cues posture, drive through stance leg Resisted stepping Standing Exercise reviewed Name Side bilateral Resistance Tb #4 around ankles Reps/Minutes 15 ft ea Comments good form bottoms up Standing Exercise on 12 in step Name Side bilateral Reps/Minutes 10 sec x6 wall posture Standing Exercise roll up with chin tuck Name Side bilateral Reps/Minutes 1 min hold lunge Standing Exercise walking cues depth Name Side bilateral Resistance 5lb B UEs Reps/Minutes 20ft total Comments cues hip hinge and back knee bent squat Side bilateral Equipment Used 10lb B Reps/Minutes 2x8 Comments cues foot position Other Exercises tail wags Side bilateral Reps/Minutes 15 Comments cues for hip and shoulder motion coordination thread the needle Side bilateral Reps/Minutes 5 Comments cues rot both direction dogward dog Side bilateral Reps/Minutes 20sec Comments cues press through shoulders and heels down luis pose Other Exercise Name fwd and sides B Reps/Minutes 15 sec ea Physical Therapy Assessment Goals lifting Short Term Goal (STG Pt will be able to lift at 25# from ground to ) demonstrate proper mechanics and improved ability to perform household activities. 12/28-able to do squats w/10lbs STG Duration achieved 02/15 Custodial Goal (LTG) Pt will be able to lift at 50# from ground to demonstrate proper mechanics and improved ability to perform household activities. 02/15-cues needed LTG Duration 01/25/25 activity Custodial Goal (LTG) Pt will be able to perform activities at least 6 days per week to demonstrate better tolerance to activity and reduced impact on activity d/t pain. 12/22/24: cut grass, fixed up shop, watered plants - no pain. 12/28-depends on the day 02/15-improved ; still sleepy sometimes, but has been able to do chores LTG Duration 03/15 Assessment Summary Assessment Pt indep w/HEP at this time and much improved w/his activity tolerance w/occ still fatigue, but encouraged to cont exercises and activity to help with this. He did show improved lifting mechanics. Physical Therapy Plan Discharge Physical Therapy Discharge Reasons Goals Met
== END 2025-03-31 08:24 | disposition home or self-care (01) ==
LOC: PHYS 13:45
PROVIDERS: Family Provider Family Medicine; PCP Family Medicine; Referring Provider Student in an Organized Health Care Education/Training Program; Visit Provider Student in an Organized Health Care Education/Training Program
DX: U09.9 Post COVID-19 condition, unspecified (principal)
CPT/HCPCS: 97110; 97112; 97140; 97162; 97535

== ENCOUNTER → 2025-03-25 08:53 | Outpatient (CLI) | payer MEDICARE, OTHER, SELFPAY ==
[2025-03-25 10:22] LABS: Hematocrit 41.0 % (41-53); Hemoglobin 14.0 g/dL (13.5-17.5); Mean Corpuscular HGB Conc 34.2 % (30-36); Mean Corpuscular Hemoglobin 32.3 PG (26-34); Mean Corpuscular Volume 94.4 fL (80-100); Platelet Count 242 X10^3/uL (150-400)
[2025-03-25 10:43] LABS: Blood Urea Nitrogen 18 mg/dL (9-20); Calcium 9.6 mg/dL (8.4-10.2); Carbon Dioxide 28 mmol/L (22-32); Chloride 103 mmol/L (98-107); Cholesterol 200 mg/dL (140-199); Estimated Glomerular Filt Rate > 60 mL/min (>60); Glucose 94 mg/dL (70-99); HDL Cholesterol 49 mg/dL (40-60); HEMOLYSIS < 15 (0-50); Potassium 4.2 mmol/L (3.4-5.1); Sodium 139 mmol/L (137-145); Triglycerides 104 mg/dL (35-150)
== END ==
PROVIDERS: Family Provider Family Medicine; PCP Family Medicine; Referring Provider Internal Medicine Cardiovascular Disease; Visit Provider Internal Medicine Cardiovascular Disease
DX: E78.5 Hyperlipidemia, unspecified (principal); I48.0 Paroxysmal atrial fibrillation; Z79.01 Long term (current) use of anticoagulants
CPT/HCPCS: 36415; 80048; 80061; 85027

== ENCOUNTER → 2025-04-01 09:07 | Outpatient (CLI) | payer MEDICARE, OTHER, SELFPAY ==
--- NOTE | 2025-04-01 09:08 | DI.ECHO.S_ITS ---
[place] +---------+ [facility] : : [address] : : [id number] : : Phone: [phone] Echocardiogram Report + + :Name: NARAYAN GUERRA Study Date: 04/01/2025 Height: 70 in : :Hospital ReadingLocation: Weight: 175 lb : : Gender: Male BSA: 2.0 m2 : :: 1945 Age: 79 yrs BP: 114/75 mmHg: :Reason For Study: Paroxysmal Afib : :Ordering Physician: CORRIE, : :JOSTIN Performed By: Grant Mejia : :Referring: JOSTIN HALL : + + Interpretation Summary 1) Normal left ventricular size, wall motion, and systolic function (EF 55- 60%). 2) Normal right ventricular size and function. 3) There is mild aortic stenosis (valve area 1.9cm2, mean gradient 13mmHg, severity ratio 0.46). 4) No prior Echo available for comparison. Procedure: A two-dimensional transthoracic echocardiogram with color flow and Doppler was performed. The study quality was technically adequate. There is no prior echocardiogram noted for this patient. The heart rate ranged between 65-72 bpm during the study. Left Ventricle: The left ventricle is normal in size. Left ventricular wall thickness is mildly increased. Left ventricular systolic function is normal. The ejection fraction is estimated to be 55-60%. There are no focal wall motion abnormalities. Grade I diastolic dysfunction with normal left atrial pressure. Right Ventricle: The right ventricle is mildly dilated. The right ventricular systolic function is normal. Atria: The left atrial size is normal. The right atrium is mildly dilated. There is no Doppler evidence for an interatrial shunt. Mitral Valve: The mitral valve leaflets appear to open well. There is no mitral valve stenosis. There is trace mitral regurgitation. Aortic Valve: The aortic valve is trileaflet. The aortic valve is mildly calcified. There is mild aortic stenosis. The calculated aortic valve area is 1.9 cm2. The peak aortic velocity is 2.3 m/sec. The aortic valve mean gradient is 13 mmHg. sev ratio: 0.46. No aortic regurgitation is present. Tricuspid Valve: The tricuspid valve is not well visualized, but is grossly normal. There is mild tricuspid regurgitation. The right ventricular systolic pressure is estimated to be at least 41 mmHg based on an estimated right atrial pressure of 8 mm Hg. Pulmonic Valve: The pulmonic valve is not well seen, but is grossly normal. There is trace pulmonic regurgitation. Great Vessels: The aortic root is normal size. The ascending aorta is normal in size. The aortic arch could not be visualized. The pulmonary is not well visualized. The IVC is dilated (diameter is greater than 2.1 cm) yet it collapses greater than 50% with a sniff. This suggests a right atrial pressure of 8 mm Hg. Pericardium/ Pleura There is no pericardial effusion. MMode/2D Measurements & Calculations LVIDd: 4.9 cm LVOT diam: 2.3 cm LVIDs: 3.3 cm Ao root diam: 3.2 cm FS: 31.0 % asc Aorta Diam: 3.3 cm IVSd: 1.2 cm LVPWd: 1.2 cm LV young. diameter/BSA (cm/m^2): 2.5 LV sys. diameter/BSA (cm/m^2): 1.7 LA A2 area: 25.5 cm2 RA long axis: 6.7 cm LA A4 area: 20.3 cm2 RA area: 28.2 cm2 LA length (vol): 6.6 cm RA vol: 101.1 ml LA vol: 66.8 ml RA : 51.3 ml/m2 LA vol index: 33.9 ml/m2 IVC diam: 2.2 cm RVD1 (basal): 4.2 cm RVD2 (mid): 3.6 cm TAPSE: 2.2 cm Doppler Measurements & Calculations Ao V2 max: 234.8 cm/sec LVOT Max Omi: 108.4 cm/sec Ao V2 mean: 172.5 cm/sec LV V1 max P.7 mmHg Ao max P.0 mmHg LV V1 VTI: 23.2 cm Ao mean P.0 mmHg HUE(I,D): 1.9 cm2 Ao V2 VTI: 50.7 cm HUE(V,D): 1.9 cm2 sev ratio: 0.46 HUE indexed to BSA (cm^2/m^2): 0.95 MV E max omi: 67.3 cm/sec TR max omi: 283.3 cm/sec MV A max omi: 53.5 cm/sec TR max P.1 mmHg MV E/A: 1.3 PA V2 max: 121.3 cm/sec Med Peak E' Omi: 8.9 cm/sec PA V2 mean: 82.1 cm/sec E/E' med: 7.5 PA mean P.1 mmHg Lat Peak E' Omi: 10.6 cm/sec PA pr(Accel): 26.3 mmHg E/E' lat: 6.3 E/e' average: 6.9 MV dec time: 0.21 sec SV(LVOT): 95.0 ml Reading Physician:03:44 PM
== END ==
LOC: ECHO 09:08
PROVIDERS: Family Provider Family Medicine; PCP Family Medicine; Referring Provider Internal Medicine Cardiovascular Disease; Visit Provider Internal Medicine Cardiovascular Disease
DX: I48.0 Paroxysmal atrial fibrillation (principal); I08.2 Rheumatic disorders of both aortic and tricuspid valves
CPT/HCPCS: 93306

== ENCOUNTER 2025-05-10 12:14 | Day surgery (SDC) | payer MEDICARE, OTHER, SELFPAY ==
[2025-05-04 15:07] VITALS: BMI 25.8
--- NOTE | 2025-05-10 | PATH_ITS ---
[facility] Accession Number: [id number] No. of containers..05 Tissue . 01 Material submitted: . PART A: duodenum - DUODENAL PART B: stomach - ANTRAL PART C: stomach - GASTRIC POLYP PART D: esophagus - ESOPHAGUS PART E: colon - COLON,ASCENDING POLYP . 01 Diagnosis: A. DUODENUM, BIOPSY: Duodenal mucosa with benign gastric heterotopic. Negative for villous blunting and intraepithelial lymphocytosis. Negative for dysplasia and malignancy. . B. STOMACH, ANTRUM, BIOPSY: Histologically unremarkable antral mucosa. Negative for Helicobacter organisms on H/E stain. Negative for intestinal metaplasia, dysplasia, and malignancy. . C. GASTRIC POLYP, BIOPSY: Fundic gland polyp. Negative for Helicobacter organisms on H/E stain. Negative for intestinal metaplasia, dysplasia, and malignancy. . D. ESOPHAGUS, BIOPSY: Histologically unremarkable squamous mucosa. Negative for intraepithelial eosinophilia, dysplasia, and malignancy. . E. ASCENDING COLON, POLYPECTOMY: Tubular adenoma. [facility] [place] 05/18/2025 1620 Local . 01 Electronically signed: . Moraima Roca DO, Pathologist NPI- [id number] . 01 Gross description: . A. Received in formalin labeled with two patient identifiers and 1. Duodenal biopsy, are two castro tissue fragments ranging from 0.1 to 0.2 cm. Entirely submitted in cassette A1. B. Received in formalin labeled with two patient identifiers and 2. Antral biopsy, are two castro tissue fragments ranging from 0.2 to 0.4 cm. Entirely submitted in cassette B1. C. Received in formalin labeled with two patient identifiers and 3. Gastric polyp, is a 0.3 cm castro tissue fragment. Entirely submitted in cassette C1. D. Received in formalin labeled with two patient identifiers and 4. Esophageal biopsy, are five castro-white soft tissue fragments ranging from 0.1 to 0.4 cm. Entirely submitted in cassette D1. E. Received in formalin labeled with two patient identifiers and 5. Ascending colon polyp, is a 0.7 cm castro tissue fragment. Entirely submitted in cassette E1. ([id number]) /DAVID 05/14/2025 2113 Local . 01 Pathologist provided ICD-10: R10.13 . 01 CPT . 115758, 066478, 113902, 638802, 529109 Specimen Comment: A courtesy copy of this report has been sent to [facility] Pathology Performed at: [address] [facility] [address] [address], [place], [place] [id number] MD Harjit Marroquin MD Phone: [phone]
--- NOTE | 2025-05-10 06:11 | P.HP_ITS ---
History of Present Illness History of Present Illness Date Patient Seen: 05/10/25 Chief complaint: Esophagogastroduodenoscopy/Colonoscopy Narrative: Patient presents for EGD/Colonoscopy today. [facility] Medical History (Updated 05/05/25 @ 13:47 by Mery Van, RN) GERD (gastroesophageal reflux disease) Paresthesias Hyperlipidemia Renal mass, right Hypertension Cervical disc disease Forearm pain Barretts esophagus Seborrheic keratosis Atrial fib/flutter, transient Fatigue Acute cognitive decline Surgical History (Updated 05/05/25 @ 13:47 by Mery Van, RN) [place] teeth removed (06/16/86) History of hernia repair (06/16/11) Meds Home Medications and Allergies Home Medications ?Medication ?Instructions ?Recorded ?Confirmed ?Type apixaban 5 mg tablet (Eliquis) 5 mg PO BID 09/08/24 History losartan 50 mg tablet 50 mg PO DAILY 09/08/2403/17 History metoprolol succinate 25 mg 25 mg PO DAILY 05/05/25 Hi story tablet,extended release 24 hr omeprazole 40 mg capsule,delayed 40 mg PO DAILY 05/09/25 History release Allergies Allergy/AdvReac Type Severity Reaction Status Date / Time duloxetine AdvReac Intermediate Diarrhea Verified 04/06/25 09:31 gabapentin AdvReac Intermediate Diarrhea Verified 04/06/25 09:31 nortriptyline AdvReac Intermediate Diarrhea Verified 04/06/25 09:31 oxycodone AdvReac Intermediate Verified 04/06/25 09:31 lisinopril AdvReac Diarrhea. Verified 05/05/25 13:45 Exam Narrative Exam Narrative: Const General: healthy appearing, comfortable and no acute distress Orientation: alert and oriented x3 HENMT Ears: hearing grossly normal bilaterally Eyes Visual Anthony: normal visual anthony by confrontation Conjunctivae: conjunctivae normal Sclera: sclerae normal EOM: EOM intact bilaterally Resp Effort & Inspection: normal respiratory effort and able to speak in complete sentences Cardio Rate: regular rate GI Palpation: soft (NT) Extrem General: no pedal edema and no calf tenderness Assessment & Plan Assessment and plan (1) History of colon polyps: Status: Acute (2) GERD (gastroesophageal reflux disease): Qualifiers: Esophagitis presence: esophagitis presence not specified Qualified Code(s): K21.9 - Gastro-esophageal reflux disease without esophagitis Status: Acute (3) Barretts esophagus: Qualifiers: Qiu's esophagus type: without dysplasia Qualified Code(s): K22.70 - Qiu's esophagus without dysplasia Status: Acute Plan Plan EGD/colonoscopy, possible biopsy. The risks, benefits and options regarding the procedure were explained to the patient in detail. Risk discussion included but not limited to: bleeding, perforation, unable to reach cecum, missed lesion. The patient was encouraged to ask questions and they were answered to their sati sfaction. The patient understands and is agreeable to proceed. Time-Based Coding :: [TOTAL MINUTES] spent with patient and on the chart (including review of chart, obtaining history, exam, reviewing outside data, placing orders, documenting exam and treatment plan, and counseling patient) on [DATE]. 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
[2025-05-10] MEDS: LACTATED RINGERS 1,000 ML 42 ML IV (12:43)
[2025-05-10 12:44] VITALS: BP 145/78; PULSE 116; RESP 20; TEMP 36.7; O2SAT 97
--- NOTE | 2025-05-10 12:56 | EKG_ITS ---
[address] [address] Test Date: 2025-05-10 Pat Name: Eladio Munoz Department: [facility] Room: Gender: Male [employer] Director: ANGELA : 1945 Requested By: Order Number: [id number] Reading MD: Nelson Alatorre Measurements Intervals [place] Rate: 113 P: ND: QRS: 80 QRSD: 166 T: -18 QT: 360 QTc: 493 Interpretive Statements Atrial fibrillation with rapid ventricular response Right bundle branch block Electronically Signed On 05-10-2025 19:04:37 PST by Nelson Alatorre
--- NOTE | 2025-05-10 13:23 | P.OP.EGD&C_ITS ---
Operative Date/Time/Diagnoses Date of procedure: 05/10/25 Time of procedure: 14:09 Pre-op diagnosis: H/O Qiu's, GERD, h/o colon polyps Post-op diagnosis: other (Mild antritis, duodenitis, ascending colon polyp) Procedure & Clinicians Study performed: EGD with biopsy, colonoscopy with polypectomy Same procedure(s) as scheduled: Yes Indications: 79yo M, h/o Qiu's, GERD, colon polyps Surgeon: Jamir Herrera Anesthesia Type: MAC +/- Procedure Notes SCOAP/Timeout: Performed Procedure in detail: EGD Informed consent was obtained. The procedure, its risks, benefits, and alternatives were discussed. Patient understood and agreed to proceed. The patient was placed in the left lateral decubitus position with head elevated. Sedation given per anesthesia. The video endoscope was inserted into the oropharynx and guided under direct vision into the esophagus, stomach, and duodenum which were carefully examined. The scope was retroflexed to examine the hiatus and gastroesophageal junction. Antral biopsies were obtained for Helicobacter pylori. The patient tolerated the procedure very well. There were no apparent complications. Significant EGD findings: Z-line noted at: 39cm Patulous hiatus but no hiatal hernia No esophagitis, random biopsies taken in 4 quadrants Gastric polyps, benign-appearing, likely PPI effect, one biopsied for sampling Mild antral gastritis with erythematous streaking, biopsied Nodular duodenitis, biopsied No ulcer in esophagus, stomach or duodenum Colonoscopy Patient placed in left lateral recumbent position. Time out was performed. Procedural sedation was administered by anesthesia. Examination began with a thorough inspection of the perianal area. There was no evidence of fissures, fistulae, external hemorrhoids or cutaneous malignancy. The colonoscope was then placed into the rectum and the lumen was insufflated with carbon dioxide. The scope was carefully advanced forward. Ultimately the cecum was intubated and confirmed by identification of the ileocecal valve, the appendiceal orifice and the confluence of the taenia. The scope was then slowly withdrawn examining the colon thoroughly in all directions. In the rectum, retroflexion of the scope was performed for inspection of the distal rectum and anal canal. ?Significant colonoscopy findings: ?1. Quality of the preparation-good, [place] 2-3, improved with irrigation/suction ?2. 3mm, sessile polyp, benign-appearing, looks adenomatous, ascending colon, removed with cold snare and retrieved for pathology 3. Dilated rectal veins with small internal hemorrhoids Scope withdrawal time: 11 minutes Findings: gastritis, internal hemorrhoids and polyp Specimen(s): other (EGD biopsies of esophagus, stomach and duodenum, ascending colon polyp) Estimated Blood Loss: 5 Complications: none Impression: Mild antritis/duodenitis Single polyp in ascending colon Post-procedure Recommendations: Colonscopy in 5 years and Will call with biopsy results Plan for aftercare: PACU then home Follow up: as needed Disposition: PACU
[2025-05-10 14:03] VITALS: BP 108/71; PULSE 107; RESP 17; TEMP 36.2; O2SAT 95
[2025-05-10 14:15] VITALS: BP 114/69; PULSE 113; RESP 15; TEMP 36.2; O2SAT 96
== END 2025-05-10 14:42 | disposition home or self-care (01) ==
PROVIDERS: Family Provider Family Medicine; PCP Family Medicine; Referring Provider Family Medicine; Visit Provider Surgery
PROC: 0DJ08ZZ Inspection of Upper Intestinal Tract, Via Natural or Artificial Opening Endoscopic (ICD-10-PCS; CPT 45385; principal; 2025-05-10 13:45)
PROC: 0DJD8ZZ Inspection of Lower Intestinal Tract, Via Natural or Artificial Opening Endoscopic (ICD-10-PCS; CPT 45378; 2025-05-10 13:45)
DX: Z12.11 Encounter for screening for malignant neoplasm of colon (principal); Z86.0100 Personal history of colon polyps, unspecified; Z87.19 Personal history of other diseases of the digestive system; K21.9 Gastro-esophageal reflux disease without esophagitis; I48.91 Unspecified atrial fibrillation; Z79.01 Long term (current) use of anticoagulants; K64.8 Other hemorrhoids; K29.80 Duodenitis without bleeding; K29.50 Unspecified chronic gastritis without bleeding; K31.7 Polyp of stomach and duodenum; D12.2 Benign neoplasm of ascending colon
CPT/HCPCS: 45385; 43239; 93005; J2704; J7120